=== PATIENT | female | born 1965 | race Caucasian/White ===

== ENCOUNTER → 2016-09-05 | Outpatient (CLI) | payer BC ==
[~2016-09-05] MED LIST: CYCL10TA9 PO; GBPN300C PO; LEVO500T69 PO; META800T5 PO; NAPR-243 PO; NAPR250T34 PO; ONDAN4ODT PO; OXYC-281 PO; PRD20T PO; TRM50T PO
--- NOTE | 2016-09-05 13:19 | Diagnostic Imaging Report ---
PROCEDURE: MRI lumbar spine. TECHNIQUE: Multiplanar, multisequence MRI of the lumbar spine was performed without contrast. 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 COMPARISON: 03/18/2014. FINDINGS: There is resection of vertebral body L3 and posterior elements with bone shaft implant in place of this vertebral body and anterior fusion hardware at the L4 and near the anterior margin of this bone graft. There is a posterior fusion hardware with transpedicular screws through L1, L2, L4, and L5 with bridging rods bilaterally. No obvious osseous bridging seen by MRI. The alignment of the posterior spinal line is satisfactory. The remaining vertebral bodies have normal heights. There is distortion of the marrow signal related to the hardware preventing accurate assessment. There is no obvious soft tissue mass on this unenhanced exam seen at the resection site or around it. The spinal canal appears widely patent. There is susceptibility artifact from the hardware seen. Disc desiccation at multiple levels noted. The cauda equina and conus medullaris appear grossly unremarkable. T12/L1: There is mild disc bulge and facet arthropathy without spinal canal or foraminal stenosis. L1/2: No disc herniation. There is mild facet hypertrophy. No spinal canal or foraminal stenosis. At L2/3 level, the spinal canal is widely patent. There is a small seroma posterior to the thecal sac at the L3 level. This appears similar to 03/18/2014 exam, perhaps slightly smaller. L3/4: No spinal canal stenosis and postoperative changes. L4/5: No disc herniation. There is mild facet arthropathy. The foramina demonstrate mild narrowing of the left and ckikusdw-vy-lpapdh narrowing on the right compressing the exiting right L4 spinal nerve. L5/S1: There is a diffuse disc bulge and moderate facet arthropathy. No central canal or lateral recess stenosis. There is bilateral fvppkvsd-gl-rcqhrx foraminal stenosis. IMPRESSION: Postoperative changes as described. There is dciiacva-jh-mezxqy foraminal stenosis bilaterally at L5/S1 and on the right side at L4/5 level. Dictated by: Dictated on workstation # [id number]
--- NOTE | 2016-09-05 14:05 | Diagnostic Imaging Report ---
AP and frogleg lateral views of the left hip. INDICATION: Left hip pain. FINDINGS: There is deformity from old fracture in the left pelvis with internal fixation hardware that appears intact along the iliopectineal line and near the acetabulum. Hip joint demonstrates mild degenerative subchondral sclerosis and slight joint space narrowing. No acute fracture or dislocation. IMPRESSION: Mild degenerative changes. No acute process. Dictated by: Dictated on workstation # [id number]
== END ==
LOC: RAD 11:10
PROVIDERS: ATTEND Internal Medicine
DX: M25.552 Pain in left hip (principal); D48.0 Neoplasm of uncertain behavior of bone and articular cartilage
CPT/HCPCS: 72148; 73502

== ENCOUNTER → 2017-09-27 | Outpatient (CLI) | payer BC ==
[~2017-09-27] VITALS: Ht 167.6 cm; Wt 68.0 kg
[~2017-09-27] MED LIST changes: +CATHETER FLUSH 10 ML SYR IV PRN; +REGADENOSON 0.4 MG/5 ML SYR (LEXISCAN) IV ONE
[2017-09-27 07:54] VITALS: BP 116/76
[2017-09-27 08:06] VITALS: BP 109/68
== END ==
LOC: CARD 07:00
PROVIDERS: ATTEND Internal Medicine
DX: R00.2 Palpitations (principal); R07.9 Chest pain, unspecified
CPT/HCPCS: 78452; 93017

== ENCOUNTER 2017-10-10 07:47 | Day surgery (SDC) | payer BC ==
[~2017-10-10] VITALS: Ht 167.6 cm; Wt 68.0 kg
[2017-10-10] VITALS (10 sets, daily range): BP systolic 102–127; BP diastolic 47–78
[~2017-10-10 07:47] MED LIST changes: -CATHETER FLUSH 10 ML SYR IV PRN; -REGADENOSON 0.4 MG/5 ML SYR (LEXISCAN) IV ONE
[2017-10-10] MEDS ORDERED: NS IV 1000 ML 1,000 ML ONE (07:59)
[2017-10-10] MEDS ORDERED: HEParin (CATH LAB) 2,000 ML IV ONE (07:59)
[2017-10-10] MEDS ORDERED: LIDOCAINE 1% INJ 50 ML (XYLOCAINE) VIAL ONE (08:01)
[2017-10-10] MEDS ORDERED: NS IV 1000 ML 1,000 ML IV SCH ×2 (08:16→11:02)
[2017-10-10 08:33] LABS: MEAN PLATELET VOLUME 8.7 FL (7.4-10.4); RED BLOOD COUNT 4.44 10^6/uL (4.35-5.85); RED CELL DISTRIBUTION WIDTH 12.6 % (10.0-14.5); WHITE BLOOD COUNT 4.9 10^3/uL (4.3-11.0)
[2017-10-10 08:46] LABS: PROTHROMBIN TIME PATIENT 12.9 SEC (12.2-14.7)
[2017-10-10 08:50] LABS: ALANINE AMINOTRANSFERASE 14 U/L (0-55); ALBUMIN 4.4 GM/DL (3.2-4.5); ALKALINE PHOSPHATASE 61 U/L (40-136); BILIRUBIN,TOTAL 0.5 MG/DL (0.1-1.0); BUN/CREATININE RATIO 20; CALCIUM 9.5 MG/DL (8.5-10.1); CARBON DIOXIDE 23 MMOL/L (21-32); CHLORIDE 107 MMOL/L (98-107); CREATININE SERUM 0.75 MG/DL (0.60-1.30); GFR ESTIMATED > 60; GLUCOSE 92 MG/DL (70-105); SODIUM 141 MMOL/L (135-145); TOTAL PROTEIN 6.8 GM/DL (6.4-8.2)
[2017-10-10] MEDS ORDERED: OXYC10TA7 PO (09:04)
[2017-10-10] MEDS ORDERED: CYCL5TAB PO ×2 (09:04)
[2017-10-10] MEDS ORDERED: ASPI-999 PO (09:04)
[2017-10-10] MEDS ORDERED: METO-370 PO (09:04)
[2017-10-10] MEDS ORDERED: LOVA40TA2 PO (09:04)
[2017-10-10] MEDS ORDERED: GABA600T2 PO (09:04)
[2017-10-10] MEDS ORDERED: FENT1PAT8 TD (09:04)
[2017-10-10] MEDS ORDERED: CNC1KV IJ (09:06)
[2017-10-10] MEDS ORDERED: SENN-40 PO (09:07)
[2017-10-10] MEDS ORDERED: MIDAZOLAM 5 MG/5 ML (VERSED) VIAL ONE (09:39)
[2017-10-10] MEDS ORDERED: fentaNYL INJECTION 100 MCG/2 ML AMP ONE (09:40)
[2017-10-10] MEDS ORDERED: diphenhydrAMINE 50 MG/ML INJ (BENADRYL) ONE (09:40)
[2017-10-10] MEDS ORDERED: HEParin 1000 UNIT/ML (10ML VIAL) FOR BOLUS ONE (09:40)
[2017-10-10] MEDS ORDERED: VERAPAMIL 5 MG/2 ML (CALAN) VIAL IV ONE (09:40)
[2017-10-10] MEDS ORDERED: NITRO DRIP 25000 MCG/D5W 250 ML IV ONE (09:41)
--- NOTE | 2017-10-10 10:11 | Cardiac Procedure Note-CS/ASA ---
Pre-Procedure Note Pre-Op Procedure Note H&P Reviewed The H&P was reviewed, patient examined and no changes noted. Date H&P Reviewed: Oct 10, 2017 Time H&P Reviewed: 10:11 Conscious Sedation Pre-Proced Time Reviewed: 10:11 ASA Class: 3 Airway Mallampati Classification: (ute mountain appropriate class) I. II. III, IV Lungs Heart ASA score ASA 1: a normal healthy patient ASA 2: a patient with a mild systemic disease (mid diabetes, controlled hypertension, obesity ASA 3: a patient with a severe systemic disease that limits activity (angina , COPD, prior Myocardial infarction) ASA 4: a patient with an incapacitating disease that is a constant threat to life (CHF, renal failure) ASA 5: a moribund patient not expected to survive 24 hrs. (ruptured aneurysm) ASA 6: a declared brain patient whose organs are being harvested. For emergent operations, add the letter E after the classification Grade 1 Sedation Plan: Analgesia, Amnesia, Plan communicated to team members, Discussed options with patient/fam, Discussed risks with patient/fam Note The patient is an appropriate candidate to undergo the planned procedure, sedation, and anesthesia. The patient immediately re-assessed prior to indication. Mandy SIMMONS MD Oct 10, 2017 10:11 am
--- NOTE | 2017-10-10 11:02 | Coronary Angiography Report ---
Coronary Angiography Report DATE OF PROCEDURE: 10/10/17 INDICATION: recurrent chest pain with ST-T wave abnormalities, abnormal nuclear stress test. PREOPERATIVE DIAGNOSIS: recurrent chest pain with ST-T wave abnormalities, abnormal nuclear stress test. POSTOPERATIVE DIAGNOSIS: patent epicardial coronary arteries. HISTORY: this is a 52-year-old lady who presented with recurrent episodes of chest pain with EKG changes of ST-T wave abnormalities. Nuclear stress test showed evidence of anterior apical ischemia. Therefore, the patient was scheduled for coronary angiography. PROCEDURES PERFORMED: 1.Coronary angiography. 2.Left heart catheterization. 3. Aortic arch angiography. COMPLICATIONS: None. SPECIMENS: None. ESTIMATED BLOOD LOSS: 10 mL ANESTHESIA: Conscious sedation ANTICOAGULATION: IV heparin CONTRAST: 60 mL. FLUOROSCOPY: 3.25 minutes. FLOUROSCOPY DOSE: 138 mgy. PROCEDURE DETAILS: The patient is a 52 female and was brought to the grinding and polishing laborer after informed consent was taken. All the risks and complications were explained in detail; this included the risk of bleeding, vascular damage, stroke , LA and even . The patient was draped and prepped in the usual sterile fashion. Access was gained in the right radial artery with a 6 Bhutanese sheath. Coronary angiography, aortic arch angiography and left heart catheterization was performed with the Gladstone catheter. FINDINGS: 1.Left main: patent. 2.LAD: patent, transapical vessel. Mild slow flow noted. 3.Left circumflex artery: patent. Mild slow flow noted. 4.RCA: patent. 5.Left heart catheterization: aortic pressure 74/50 mmHg, LV pressure 79/1 mmHg. LVEDP 9 mmHg. Normal LV function with no wall motion abnormalities. No gradient across the aortic valve. 6. Aortic arch angiography: No evidence of aneurysm or dissection. Normal proximal segments of the great arteries including brachycephalic artery, left common carotid artery and left subclavian artery. CONCLUSIONS: Patent epicardial coronary arteries. Mild slow flow noted in the left coronary system likely secondary to microvascular dysfunction. She may benefit from vasodilators such as amlodipine. However not started at this point in time since the blood pressure was on the lower side. Kingsley Graves MD, FACP, FACC, [facility] Interventional Cardiology Mandy GRAVES MD Oct 10, 2017 11:02 am
--- NOTE | 2017-10-10 11:04 | Discharge Inst-Post CATH ---
Discharge Inst-CATH Post Cardiac Cath D/C Inst Follow Up/Plan Dr Graves in two to three weeks CARDIAC CATH DISCHARGE INSTRUCTIONS *Hold Metformin for 48 hours post heart cath. ACTIVITY * Go Home directly and rest. * Limit activity of the leg (or wrist if it was used) for 7 days including aerobics, swimming, jogging, bicycling, etc. * Restrict stair-climbing for 7 days if possible, if not, climb up with your non -cath leg, then bring together on the same step. * Avoid lifting, pushing, pulling or excessive movement of the affected extremity for 7 days. * Customary sexual activity may be resumed after 2 days-use caution not to use a position that strains or causes pain to the affected extremity. * No driving for 24 hours. * NO SMOKING. * Avoid straining for bowel movements for 7 days. * Gentle walking on level ground is allowed. * Returning to work will depend on the type of procedure and the results. Your doctor will discuss this with you. CALL YOUR DOCTOR FOR ANY OF THE FOLLOWING: *If bleeding from the puncture site occurs- Apply gentle pressure to site with clean cloth and call your doctor or EMS. * If a knot or lump forms under the skin, increases in size, or causes pain. * If bruising appears to be worsening or moving further down your leg instead of disappearing. * Temperature above 101 F. CARE OF YOUR GROIN INCISION; * Bruising or purple discoloration of the skin near the puncture site is common. * You may shower only, no bathtub bathing for 5 days. Be careful to avoid slipping as your leg may feel stiff. * If a closure device was used on your femoral artery, please see the attached guide regarding care of the device and your leg. * REMOVE the dressing from your groin the next day after your procedure in the shower. CARE OF YOUR WRIST INCISION; * Bruising or purple discoloration of the skin near the puncture site is common. * You may shower. * DO NOT submerge wrist. * Remove dressing in 24 hours. Mandy GRAVES MD Oct 10, 2017 11:04 am
--- NOTE | 2017-10-10 11:06 | Cardiology Discharge Summary ---
Diagnosis/Chief Complaint Date of Admission 10/10/2017 Date of Discharge 10/10/2017 Admission Diagnosis recurrent chest pain, abnormal EKG, abnormal nuclear stress test Final/Discharge Diagnosis patent epicardial coronary arteries Chief Complaint/HPI Chief Complaint/HPI this is a 52-year-old lady with recurrent episodes of chest pain. Baseline EKG showed ST-T wave abnormalities. Nuclear stress test showed a reversible anterior apical defect. Coronary angiography was recommended. Discharge Summary Procedures coronary angiography which showed patent epicardial coronary arteries. Mild slow flow was noted in the left coronary system which may be secondary to microvascular dysfunction. Discharge Physical Examination stable Hospital Course unremarkable Pending Labs Laboratory Tests 10/10/17 08:24: White Blood Count 4.9, Red Blood Count 4.44, Hemoglobin 13.0, Hematocrit 37, Mean Corpuscular Volume 84, Mean Corpuscular Hemoglobin 29, Mean Corpuscular Hemoglobin Concent 35, Red Cell Distribution Width 12.6, Platelet Count 288, Mean Platelet Volume 8.7, Prothrombin Time 12.9, INR Comment 1.0, Activated Partial Thromboplast Time 33, Sodium Level 141, Potassium Level 4.0, Chloride Level 107, Carbon Dioxide Level 23, Anion Gap 11, Blood Urea Nitrogen 15, Creatinine 0.75, Estimat Glomerular Filtration Rate > 60, BUN/Creatinine Ratio 20, Glucose Level 92, Calcium Level 9.5, Total Bilirubin 0.5, Aspartate Amino Transf (AST/SGOT) 18, Alanine Aminotransferase (ALT/SGPT) 14, Alkaline Phosphatase 61, Total Protein 6.8, Albumin 4.4 Discussion & Recommendations Discussion discharge instructions discussed at length with the patient. Follow up appt.: Dr. Graves in 2-3 weeks Dicharge Diet: Low Sodium Diet Activity as Tolerated: Yes Home Medications Reviewed patient Home Medication Reconciliation performed by pharmacy medication reconciliations delivery technician and/or nursing. Patients Allergies have been reviewed. Discharge Home Medications: Reviewed and agree with Discharge Medication list on patient's Discharge Instruction sheet Condition at discharge stable. Instructions to patient/family Dr Graves in two to three weeks Mandy GRAVES MD Oct 10, 2017 11:06 am
[2017-10-10] MEDS ORDERED: PATIENT MAY USE OWN MEDS, ALL PO SCH (11:15)
--- OUTSIDE RECORDS SUMMARY | 2017-10-10 11:15 | XMS REPORT | Continuity of Care Document ---
Author Author [facility] Organization [facility] Address Unknown Phone Unavailable Allergies Active Description Code Type Severity Reaction Onset Reported/Identified Relationship to Patient Clinical Status Yes IMITREX IMITREX Unknown N/A 12/11/2012 Medications There is no data. Problems Date Dx Coded Attending Type Code Diagnosis Diagnosed By 11/23/2012 LIAM WILLIAMSON MD Ot 724.2 LUMBAGO 11/23/2012 LIAM WILLIAMSON MD Ot 724.4 LUMBOSACRAL NEURITIS NOS 12/13/2012 ELLEN TRIVEDI DO Ot 041.49 OTHER AND UNSPECIFIED ESCHERICHIA COLI [ 12/13/2012 ELLEN TRIVEDI DO Ot 239.2 BONE/SKIN NEOPLASM NOS 12/13/2012 ELLEN TRIVEDI DO Ot 477.9 ALLERGIC RHINITIS NOS 12/13/2012 ELLEN TRIVEDI DO Ot 599.0 URIN TRACT INFECTION NOS 12/13/2012 ELLEN TRIVEDI DO Ot 724.4 LUMBOSACRAL NEURITIS NOS 12/13/2012 ELLEN TRIVEDI DO Ot 733.13 PATHOLOGIC FRACTURE, VERTEBRAE 12/13/2012 ELLEN TRIVEDI DO Ot V45.77 ACQRD ABSENCE OF GENITAL ORGANS 12/25/2012 ELLEN TRIVEDI DO Ot 846.0 SPRAIN LUMBOSACRAL 12/25/2012 ELLEN TRIVEDI DO Ot E000.8 OTHER EXTERNAL CAUSE STATUS 12/25/2012 ELLEN TRIVEDI DO Ot E849.0 ACCIDENT IN HOME 12/25/2012 ELLEN TRIVEDI DO Ot E927.0 OVEREXERTION FROM SUDDEN STRENUOUS MOVEM 12/25/2012 ELLEN TRIVEDI DO Ot V57.1 PHYSICAL THERAPY NEC 01/24/2013 LB CORONA DO Ot 346.90 MIGRAINE UNSPECIFIED W/O INTRACT MGRN W/ 01/24/2013 BL CORONA DO Ot 564.09 OTHER CONSTIPATION 01/24/2013 LB CORONA DO Ot 599.0 URIN TRACT INFECTION NOS 01/24/2013 LB CORONA DO Ot 729.1 MYALGIA AND MYOSITIS NOS 01/24/2013 LB CORONA DO Ot 787.01 NAUSEA WITH VOMITING 03/08/2013 ELLEN TRIVEDI DO Ot 805.4 FX LUMBAR VERTEBRA-CLOSE 03/08/2013 ELLEN TRIVEDI DO Ot E000.8 OTHER EXTERNAL CAUSE STATUS 03/08/2013 ELLEN TRIVEDI DO Ot E928.9 ACCIDENT NOS 03/08/2013 ELLEN TRIVEDI DO Ot V72.63 PRE-PROCEDURAL LABORATORY EXAMINATION 04/17/2013 ELLEN TRIVEDI DO Ot V57.89 REHABILITATION PROC NEC 04/17/2013 ELLEN TRIVEDI DO Ot V58.49 OTHER SPECIFIED AFTERCARE FOLLOWING SURG 09/03/2016 Ot 793.89 OTH (ABN) FINDINGS ON RADIOLOGICAL EXAMI 09/03/2016 Ot V76.12 OTH SCREEN MAMMO-MALIGN NEOPLASM OF WANDA 09/03/2016 Ot 793.80 UNSPEC ABNORMAL MAMMOGRAM 09/03/2016 RIDINGS, MARIA T C OUTSIDE SALES ACCOUNT MANAGER Ot 719.45 JOINT PAIN-PELVIS 09/03/2016 RIDINGS, MARIA T C OUTSIDE SALES ACCOUNT MANAGER Ot 719.46 JOINT PAIN-L/LEG 09/03/2016 RIDINGS, MARIA T C OUTSIDE SALES ACCOUNT MANAGER Ot 724.5 BACKACHE NOS 09/03/2016 ELLEN TRIVEDI DO Ot 733.13 PATHOLOGIC FRACTURE, VERTEBRAE 09/03/2016 RIDINGS, MARIA T C OUTSIDE SALES ACCOUNT MANAGER Ot 729.5 PAIN IN LIMB 09/03/2016 RIDINGS, MARIA T C OUTSIDE SALES ACCOUNT MANAGER Ot 729.81 SWELLING OF LIMB 09/03/2016 NIDIA COY MD Ot 729.5 PAIN IN LIMB 09/03/2016 NIDIA COY MD Ot 790.99 BLOOD EXAM - OTH NONSPECIFIC FINDINGS 09/03/2016 Ot 805.4 FX LUMBAR VERTEBRA-CLOSE 09/03/2016 Ot E000.8 OTHER EXTERNAL CAUSE STATUS 09/03/2016 Ot E928.9 ACCIDENT NOS 09/03/2016 Ot V72.63 PRE- PROCEDURAL LABORATORY EXAMINATION 09/03/2016 SAMUEL DUDLEY MD Ot 239.2 BONE/SKIN NEOPLASM NOS 09/03/2016 SAMUEL DUDLEY MD Ot V67.09 SURGERY FOLLOW-UP, OTHER SURGERY 09/03/2016 SAMUEL DUDLEY MD Ot V45.4 ARTHRODESIS STATUS 09/03/2016 SAMUEL DUDLEY MD Ot V45.89 POSTSURGICAL STATES NEC 09/03/2016 SAMUEL DUDLEY MD Ot V67.09 SURGERY FOLLOW-UP, OTHER SURGERY 09/05/2016 Ot 793.89 OTH (ABN) FINDINGS ON RADIOLOGICAL EXAMI 09/05/2016 Ot V76.12 OTH SCREEN MAMMO-MALIGN NEOPLASM OF WANDA 09/05/2016 Ot 793.80 UNSPEC ABNORMAL MAMMOGRAM 09/05/2016 RIDINGS, MARIA T C OUTSIDE SALES ACCOUNT MANAGER Ot 719.45 JOINT PAIN-PELVIS 09/05/2016 RIDINGS, MARIA T C OUTSIDE SALES ACCOUNT MANAGER Ot 719.46 JOINT PAIN-L/LEG 09/05/2016 RIDINGS, MARIA T C OUTSIDE SALES ACCOUNT MANAGER Ot 724.5 BACKACHE NOS 09/05/2016 ELLEN TRIVEDI DO Ot 733.13 PATHOLOGIC FRACTURE, VERTEBRAE 09/05/2016 RIDINGS, MARIA T C OUTSIDE SALES ACCOUNT MANAGER Ot 729.5 PAIN IN LIMB 09/05/2016 RIDINGS, MARIA T C OUTSIDE SALES ACCOUNT MANAGER Ot 729.81 SWELLING OF LIMB 09/05/2016 ZBIGNIEW GASPAR, NIDIA Galvan Ot 729.5 PAIN IN LIMB 09/05/2016 ZBIGNIEW GASPAR, NIDIA Galvan Ot 790.99 BLOOD EXAM - OTH NONSPECIFIC FINDINGS 09/05/2016 Ot 805.4 FX LUMBAR VERTEBRA-CLOSE 09/05/2016 Ot E000.8 OTHER EXTERNAL CAUSE STATUS 09/05/2016 Ot E928.9 ACCIDENT NOS 09/05/2016 Ot V72.63 PRE- PROCEDURAL LABORATORY EXAMINATION 09/05/2016 SAMUEL DUDLEY MD Ot 239.2 BONE/SKIN NEOPLASM NOS 09/05/2016 SAMUEL DUDLEY MD Ot V67.09 SURGERY FOLLOW-UP, OTHER SURGERY 09/05/2016 SAMUEL DUDLEY MD Ot V45.4 ARTHRODESIS STATUS 09/05/2016 SAMUEL DUDLEY MD Ot V45.89 POSTSURGICAL STATES NEC 09/05/2016 SAMUEL DUDLEY MD Ot V67.09 SURGERY FOLLOW-UP, OTHER SURGERY 09/06/2016 ELLEN TRIVEDI DO Ot D48.0 NEOPLASM OF UNCERTAIN BEHAVIOR OF BONE/A 09/06/2016 ELLEN TRIVEDI DO Ot M25.552 PAIN IN LEFT HIP 09/11/2016 ELLEN TRIVEDI DO Ot D48.0 NEOPLASM OF UNCERTAIN BEHAVIOR OF BONE/A 09/11/2016 ELLEN TRIVEDI DO Ot M25.552 PAIN IN LEFT HIP 09/20/2016 ELLEN TRIVEDI DO Ot D48.0 NEOPLASM OF UNCERTAIN BEHAVIOR OF BONE/A 09/20/2016 TRIVEDI ELLEN TAYLOR Ot M25.552 PAIN IN LEFT HIP 01/15/2017 ELLEN TRIVEDI DO Ot D48.0 NEOPLASM OF UNCERTAIN BEHAVIOR OF BONE/A 01/15/2017 FAROOQ DOELLEN Ot M25.552 PAIN IN LEFT HIP 01/15/2017 ELLEN TRIVEDI DO Ot D48.0 NEOPLASM OF UNCERTAIN BEHAVIOR OF BONE/A 01/15/2017 ELLEN TRIVEDI DO Ot M25.552 PAIN IN LEFT HIP 07/25/2017 ELLEN TRIVEDI DO Ot D48.0 NEOPLASM OF UNCERTAIN BEHAVIOR OF BONE/A 07/25/2017 ELLEN TRIVEDI DO Ot M25.552 PAIN IN LEFT HIP 07/25/2017 ELLEN TRIVEDI DO Ot D48.0 NEOPLASM OF UNCERTAIN BEHAVIOR OF BONE/A 07/25/2017 ELLEN TRIVEDI DO Ot M25.552 PAIN IN LEFT HIP 09/03/2017 ELLEN TRIVEDI DO Ot D48.0 NEOPLASM OF UNCERTAIN BEHAVIOR OF BONE/A 09/03/2017 ELLEN TRIVEDI DO Ot M25.552 PAIN IN LEFT HIP 09/03/2017 ELLEN TRIVEDI DO Ot D48.0 NEOPLASM OF UNCERTAIN BEHAVIOR OF BONE/A 09/03/2017 ELLEN TRIVEDI DO Ot M25.552 PAIN IN LEFT HIP 09/30/2017 ELLEN TRIVEDI DO Ot R00.2 PALPITATIONS 09/30/2017 ELLEN TRIVEDI DO Ot R07.9 CHEST PAIN, UNSPECIFIED Procedures Code Description Performed By Performed On 80.39 JOINT BIOPSY NEC 12/09/2012 Results Test Result Range Automated blood complete blood count (hemogram) panel - 10/10/17 08:24 Blood leukocytes automated count (number/volume) 4.9 10*3/uL 4.3-11.0 Blood erythrocytes automated count (number/volume) 4.44 10*6/uL 4.35-5.85 Venous blood hemoglobin measurement (mass/volume) 13.0 g/dL 11.5-16.0 Blood hematocrit (volume fraction) 37 % 35-52 Automated erythrocyte mean corpuscular volume 84 [foz_us] 80-99 Automated erythrocyte mean corpuscular hemoglobin (mass per erythrocyte) 29 pg 25-34 Automated erythrocyte mean corpuscular hemoglobin concentration measurement ( mass/volume) 35 g/dL 32-36 Automated erythrocyte distribution width ratio 12.6 % 10.0-14.5 Automated blood platelet count (count/volume) 288 10*3/uL 130-400 Automated blood platelet mean volume measurement 8.7 [foz_us] 7.4-10.4 PT panel in platelet poor plasma by coagulation assay - 10/10/17 08:24 Prothrombin time (PT) in platelet poor plasma by coagulation assay 12.9 s 12.2-14.7 INR in platelet poor plasma or blood by coagulation assay 1.0 0.8-1.4 Activated partial thromboplastin time (aPTT) in platelet poor plasma bycoagulation assay - 10/10/17 08:24 Activated partial thromboplastin time (aPTT) in platelet poor plasma bycoagulation assay 33 s 24-35 Comprehensive metabolic panel - 10/10/17 08:24 Serum or plasma sodium measurement (moles/volume) 141 mmol/L 135-145 Serum or plasma potassium measurement (moles/volume) 4.0 mmol/L 3.6-5.0 Serum or plasma chloride measurement (moles/volume) 107 mmol/L 98-107 Carbon dioxide 23 mmol/L 21-32 Serum or plasma anion gap determination (moles/volume) 11 mmol/L 5-14 Serum or plasma urea nitrogen measurement (mass/volume) 15 mg/dL 7-18 Serum or plasma creatinine measurement (mass/volume) 0.75 mg/dL 0.60-1.30 Serum or plasma urea nitrogen/creatinine mass ratio 20 NRG Serum or plasma creatinine measurement with calculation of estimated glomerular filtration rate > NRG Serum or plasma glucose measurement (mass/volume) 92 mg/dL 70-105 Serum or plasma calcium measurement (mass/volume) 9.5 mg/dL 8.5-10.1 Serum or plasma total bilirubin measurement (mass/volume) 0.5 mg/dL 0.1-1.0 Serum or plasma alkaline phosphatase measurement (enzymatic activity/volume) 61 U/L 40-136 Serum or plasma aspartate aminotransferase measurement (enzymatic activity/ volume) 18 U/L 5-34 Serum or plasma alanine aminotransferase measurement (enzymatic activity/volume ) 14 U/L 0-55 Serum or plasma protein measurement (mass/volume) 6.8 g/dL 6.4-8.2 Serum or plasma albumin measurement (mass/volume) 4.4 g/dL 3.2-4.5 Encounters ACCT No. Visit Date/Time Discharge Status Pt. Type Provider Facility Loc./Unit Complaint [id number] 09/27/2017 10:30:00 09/27/2017 23:59:59 CLS Preadmit ELLEN TRIVEDI DO [facility] CARD CHEST PAIN [id number] 09/27/2017 07:00:00 09/27/2017 23:59:59 CLS Outpatient ELLEN TRIVEDI DO [facility] CARD CHEST PAIN [id number] 06/04/2017 09:30:00 06/04/2017 23:59:59 CLS Preadmit ELLEN TRIVEDI DO [facility] RAD SCREENING [id number] 09/05/2016 11:10:00 09/05/2016 23:59:59 CLS Outpatient ELLEN TRIVEDI DO [facility] RAD GIANT CELL TUMOR OF SPINE FOLLOW UP L3,L HIP PAIN [id number] 03/18/2014 08:10:00 03/18/2014 23:59:59 CLS Outpatient SAMUEL DUDLEY MD [facility] RAD POST TUMOR OF LUMBAR SPINE [id number] 07/03/2013 12:49:00 07/03/2013 23:59:59 CLS Outpatient SAMUEL DUDLEY MD [facility] RAD LUMBAR SPINE TUMOR FOLLOW UP [id number] 03/12/2013 10:25:00 04/17/2013 09:23:00 DIS Outpatient ELLEN TRIVEDI DO [facility] REHAB GIANT CELL TUMOR OF SPINE [id number] 12/08/2012 12:04:00 03/08/2013 00:01:00 DIS Outpatient ELLEN TRIVEDI DO [facility] LAB PRE OP FX L3 [id number] 02/20/2013 16:32:00 02/20/2013 23:59:59 CLS Outpatient ZBIGNIEW GASPAR, NIDIA Galvan [facility] RAD RT LEG PAIN [id number] 02/16/2013 15:27:00 02/16/2013 23:59:59 CLS Outpatient RIDINGSMARIA T OUTSIDE SALES ACCOUNT MANAGER [facility] CARD PAIN,SWELLING IN RT LEG,POST OP [id number] 01/24/2013 12:15:00 01/24/2013 16:40:00 DIS Emergency LB CORONA DO [facility] ER NAUSEA, SWELLING AT INCISION SITE [id number] 11/25/2012 16:06:00 12/25/2012 10:17:00 DIS Outpatient ELLEN TRIVEDI DO [facility] REHAB LUMBOSACRAL STRAIN [id number] 12/09/2012 16:49:00 12/13/2012 09:25:00 DIS Inpatient ELLEN TRIVEDI DO [facility] 4TH PATHOLOGIC FX L-3 [id number] 12/05/2012 09:12:00 12/05/2012 23:59:59 CLS Outpatient FAROOQ TAYLOR ELLEN Randell [facility] RAD COMPRESSION FX L-3, PATHOLOGIC [id number] 12/04/2012 10:28:00 12/04/2012 23:59:59 CLS Outpatient RIDINGSMARIA T OUTSIDE SALES ACCOUNT MANAGER [facility] RAD BACK,RT HIP,AND KNEE PAIN [id number] 11/22/2012 23:17:00 11/23/2012 02:27:00 DIS Emergency TERI GASPAR, LIAM Mcdonald [facility] ER BACK PAIN [id number] 10/10/2017 08:42:00 Document Registration [id number] 03/09/2013 00:00:00 Document Registration [id number] 05/28/2012 13:52:00 Document Registration [id number] 05/13/2012 15:09:00 Document Registration
== END 2017-10-10 16:00 | disposition home or self-care (01) ==
LOC: CATH 07:47 → SURG 11:22 → CATH 16:00
PROVIDERS: ATTEND Internal Medicine Interventional Cardiology
DX: R07.9 Chest pain, unspecified (principal); I49.3 Ventricular premature depolarization; E78.5 Hyperlipidemia, unspecified; R94.31 Abnormal electrocardiogram [ECG] [EKG]; Z79.82 Long term (current) use of aspirin; Z79.899 Other long term (current) drug therapy; Z87.891 Personal history of nicotine dependence
CPT/HCPCS: 36221; 36415; 80053; 85027; 85610; 85730; 87081; 93458

== ENCOUNTER → 2017-11-06 | Outpatient (CLI) | payer BC ==
[~2017-11-06] MED LIST changes: +ASPI-999 PO; +CNC1KV IJ; +CYCL5TAB PO; +FENT1PAT8 TD; +GABA600T2 PO; +LOVA40TA2 PO; +METO-370 PO; +OXYC10TA7 PO; +SENN-40 PO
== END ==
LOC: CARD 09:50
PROVIDERS: ATTEND Internal Medicine Interventional Cardiology
DX: R00.2 Palpitations (principal); I49.3 Ventricular premature depolarization
CPT/HCPCS: 93225; 93226

== ENCOUNTER 2018-10-30 23:01 | Emergency (ER) | payer BC ==
[~2018-10-30] VITALS: Ht 167.6 cm; Wt 68.0 kg
[~2018-10-30 23:01] MED LIST changes: -GABA600T2 PO; +GBPN600T PO
--- OUTSIDE RECORDS SUMMARY | 2018-10-30 23:10 | XMS REPORT | Continuity of Care Document ---
Author Organization Unknown Address Unknown Allergies Active Description Code Type Severity Reaction Onset Reported/Identified Relationship to Patient Clinical Status Yes IMITREX IMITREX Unknown N/A 12/11/2012 Medications There is no data. Problems Date Dx Coded Attending Type Code Diagnosis Diagnosed By 11/23/2012 TERI GASPAR, LIAM Mcdonald Ot 724.2 LUMBAGO 11/23/2012 TERI GASPAR, LIAM Mcdonald Ot 724.4 LUMBOSACRAL NEURITIS NOS 12/13/2012 ELLEN [...] MIGRAINE UNSPECIFIED W/O INTRACT MGRN W/ 01/24/2013 LB CORONA DO Ot 564.09 OTHER CONSTIPATION 01/24/2013 LB CORONA DO Ot 599.0 URIN TRACT INFECTION NOS 01/24/2013 LB CORONA DO Ot 729.1 MYALGIA AND MYOSITIS NOS 01/24/2013 CHLOE TAYLOR LB Marinelli Ot 787.01 NAUSEA WITH VOMITING 03/08/2013 ELLEN [...] ABNORMAL MAMMOGRAM 09/03/2016 RIDINGS, MARIA T C DIRECTOR HR COMMUNICATIONS Ot 719.45 JOINT PAIN-PELVIS 09/03/2016 RIDINGS, MARIA T C DIRECTOR HR COMMUNICATIONS Ot 719.46 JOINT PAIN-L/LEG 09/03/2016 RIDINGS, MARIA T C DIRECTOR HR COMMUNICATIONS Ot 724.5 BACKACHE NOS 09/03/2016 ELLEN TRIVEDI DO Ot 733.13 PATHOLOGIC FRACTURE, VERTEBRAE 09/03/2016 RIDINGS, MARIA T C DIRECTOR HR COMMUNICATIONS Ot 729.5 PAIN IN LIMB 09/03/2016 RIDINGS, MARIA T C DIRECTOR HR COMMUNICATIONS Ot 729.81 SWELLING OF LIMB 09/03/2016 ZBIGNIEW GASPAR, NIDIA Galvan Ot 729.5 PAIN IN LIMB 09/03/2016 ZBIGNIEW GASPAR, NIDIA Galvan Ot 790.99 BLOOD [...] ABNORMAL MAMMOGRAM 09/05/2016 RIDINGS, MARIA T C DIRECTOR HR COMMUNICATIONS Ot 719.45 JOINT PAIN-PELVIS 09/05/2016 RIDINGS, MARIA T C DIRECTOR HR COMMUNICATIONS Ot 719.46 JOINT PAIN-L/LEG 09/05/2016 RIDINGS, MARIA T C DIRECTOR HR COMMUNICATIONS Ot 724.5 BACKACHE NOS 09/05/2016 ELLEN TRIVEDI DO Ot 733.13 PATHOLOGIC FRACTURE, VERTEBRAE 09/05/2016 RIDINGS, MARIA T C DIRECTOR HR COMMUNICATIONS Ot 729.5 PAIN IN LIMB 09/05/2016 RIDINGS, MARIA T C DIRECTOR HR COMMUNICATIONS Ot 729.81 SWELLING OF LIMB 09/05/2016 ZBIGNIEW GASPAR, NIDIA Galvan Ot 729.5 PAIN IN LIMB 09/05/2016 NIDIA COY MD Ot 790.99 BLOOD EXAM [...] Ot V67.09 SURGERY FOLLOW-UP, OTHER SURGERY 09/06/2016 FAROOQ TAYLOR, ELLEN Mejias Ot D48.0 NEOPLASM OF UNCERTAIN BEHAVIOR OF BONE/A 09/06/2016 TRIVEDI DO, ELLEN Mejias Ot M25.552 PAIN IN LEFT HIP 09/11/2016 TRIVEDI DO, ELLEN Mejias Ot D48.0 NEOPLASM OF UNCERTAIN BEHAVIOR OF BONE/A 09/11/2016 TRIVEDI DO, ELLEN Mejias Ot M25.552 PAIN IN LEFT HIP 09/20/2016 TRIVEDI DO, ELLEN Mejias Ot D48.0 NEOPLASM OF UNCERTAIN BEHAVIOR OF BONE/A 09/20/2016 TRIVEDI DO, ELLEN Mejias Ot M25.552 PAIN IN LEFT HIP 01/15/2017 TRIVEDI DO, ELLEN Mejias Ot D48.0 NEOPLASM OF UNCERTAIN BEHAVIOR OF BONE/A 01/15/2017 TRIVEDI DO, ELLEN Mejias Ot M25.552 PAIN IN LEFT HIP 01/15/2017 TRIVEDI DO, ELLEN Mejias Ot D48.0 NEOPLASM OF UNCERTAIN BEHAVIOR OF BONE/A 01/15/2017 TRIVEDI DO, ELLEN Mejias Ot M25.552 PAIN IN LEFT HIP 07/25/2017 TRIVEDI DO, ELLEN Mejias Ot D48.0 NEOPLASM OF UNCERTAIN BEHAVIOR OF BONE/A 07/25/2017 TRIVEDI DO, ELLEN Mejias Ot M25.552 PAIN IN LEFT HIP 07/25/2017 TRIVEDI DO, ELLEN Mejias Ot D48.0 NEOPLASM OF UNCERTAIN BEHAVIOR OF BONE/A 07/25/2017 TRIVEDI DO, ELLEN Mejias Ot M25.552 PAIN IN LEFT HIP 09/03/2017 TRIVEDI DO, ELLEN Mejias Ot D48.0 NEOPLASM OF UNCERTAIN BEHAVIOR OF BONE/A 09/03/2017 TRIVEDI DO, ELLEN Mejias Ot M25.552 PAIN IN LEFT HIP 09/03/2017 TRIVEDI DO, ELLEN Mejias Ot D48.0 NEOPLASM OF UNCERTAIN BEHAVIOR OF BONE/A 09/03/2017 TRIVEDI DO, ELLEN Mejias Ot M25.552 PAIN IN LEFT HIP 09/30/2017 ELLEN TRIVEDI DO Ot R00.2 PALPITATIONS 09/30/2017 ELLEN TRIVEDI DO Ot R07.9 CHEST PAIN, UNSPECIFIED 10/10/2017 Mandy SIMMONS MD Ot E78.5 HYPERLIPIDEMIA, UNSPECIFIED 10/10/2017 Mandy SIMMONS MD Ot I49.3 VENTRICULAR PREMATURE DEPOLARIZATION 10/10/2017 Mandy SIMMONS MD Ot R07.9 CHEST PAIN, UNSPECIFIED 10/10/2017 Mandy SIMMONS MD Ot R94.31 ABNORMAL ELECTROCARDIOGRAM [ECG] [EKG] 10/10/2017 Mandy SIMMONS MD Ot Z79.82 SHELTER (CURRENT) USE OF ASPIRIN 10/10/2017 Mandy SIMMONS MD, Ot Z79.899 OTHER BMET (CURRENT) DRUG THERAPY 10/10/2017 Mandy SIMMONS MD, Ot Z87.891 PERSONAL HISTORY OF NICOTINE DEPENDENCE 11/07/2017 Mandy SIMMONS MD, Ot I49.3 VENTRICULAR PREMATURE DEPOLARIZATION 11/07/2017 Mandy SIMMONS MD Ot R00.2 PALPITATIONS 11/13/2017 ELLEN TRIVEDI DO Ot R00.2 PALPITATIONS 11/13/2017 ELLEN TRIVEDI DO Ot R07.9 CHEST PAIN, UNSPECIFIED 11/20/2017 Mandy SIMMONS MD Ot I49.3 VENTRICULAR PREMATURE DEPOLARIZATION 11/20/2017 Mandy SIMMONS MD, Ot R00.2 PALPITATIONS 12/23/2017 ELLEN TRIVEDI DO Ot D48.0 NEOPLASM OF UNCERTAIN BEHAVIOR OF BONE/A 12/23/2017 ELLEN TRIVEDI DO Ot M25.552 PAIN IN LEFT HIP 12/23/2017 RIDINGS, MARIA T C DIRECTOR HR COMMUNICATIONS Ot 719.45 JOINT PAIN-PELVIS 12/23/2017 RIDINGS, MARIA T C DIRECTOR HR COMMUNICATIONS Ot 719.46 JOINT PAIN-L/LEG 12/23/2017 RIDINGS, MARIA T C DIRECTOR HR COMMUNICATIONS Ot 724.5 BACKACHE NOS 12/23/2017 ELLEN TRIVEDI DO Ot 733.13 PATHOLOGIC FRACTURE, VERTEBRAE 12/23/2017 RIDINGS, MARIA T C DIRECTOR HR COMMUNICATIONS Ot 729.5 PAIN IN LIMB 12/23/2017 RIDINGS, MARIA T C DIRECTOR HR COMMUNICATIONS Ot 729.81 SWELLING OF LIMB 12/23/2017 NIDIA COY MD Ot 729.5 PAIN IN LIMB 12/23/2017 NIDIA COY MD Ot 790.99 BLOOD EXAM - OTH NONSPECIFIC FINDINGS 12/23/2017 Ot 805.4 FX LUMBAR VERTEBRA-CLOSE 12/23/2017 Ot E000.8 OTHER EXTERNAL CAUSE STATUS 12/23/2017 Ot E928.9 ACCIDENT NOS 12/23/2017 Ot V72.63 PRE- PROCEDURAL LABORATORY EXAMINATION 12/23/2017 SAMUEL DUDLEY MD Ot 239.2 BONE/SKIN NEOPLASM NOS 12/23/2017 SAMUEL DUDLEY MD Ot V67.09 SURGERY FOLLOW-UP, OTHER SURGERY 12/23/2017 SAMUEL DUDLEY MD Ot V45.4 ARTHRODESIS STATUS 12/23/2017 SAMUEL DUDLEY MD Ot V45.89 POSTSURGICAL STATES NEC 12/23/2017 SAMUEL DUDLEY MD Ot V67.09 SURGERY FOLLOW-UP, OTHER SURGERY 12/23/2017 ELLEN TRIVEDI DO Ot D48.0 NEOPLASM OF UNCERTAIN BEHAVIOR OF BONE/A 12/23/2017 ELLEN TRIVEDI DO Ot M25.552 PAIN IN LEFT HIP 02/01/2018 RIDINGS, MARIA T C DIRECTOR HR COMMUNICATIONS Ot 719.45 JOINT PAIN-PELVIS 02/01/2018 RIDINGS, MARIA T C DIRECTOR HR COMMUNICATIONS Ot 719.46 JOINT PAIN-L/LEG 02/01/2018 RIDINGS, MARIA T C DIRECTOR HR COMMUNICATIONS Ot 724.5 BACKACHE NOS 02/01/2018 ELLEN TRIVEDI DO Ot 733.13 PATHOLOGIC FRACTURE, VERTEBRAE 02/01/2018 RIDINGS, MARIA T C DIRECTOR HR COMMUNICATIONS Ot 729.5 PAIN IN LIMB 02/01/2018 RIDINGS, MARIA T C DIRECTOR HR COMMUNICATIONS Ot 729.81 SWELLING OF LIMB 02/01/2018 NIDIA COY MD Ot 729.5 PAIN IN LIMB 02/01/2018 NIDIA COY MD Ot 790.99 BLOOD EXAM - OTH NONSPECIFIC FINDINGS 02/01/2018 Ot 805.4 FX LUMBAR VERTEBRA-CLOSE 02/01/2018 Ot E000.8 OTHER EXTERNAL CAUSE STATUS 02/01/2018 Ot E928.9 ACCIDENT NOS 02/01/2018 Ot V72.63 PRE- PROCEDURAL LABORATORY EXAMINATION 02/01/2018 SAMUEL DUDLEY MD Ot 239.2 BONE/SKIN NEOPLASM NOS 02/01/2018 SAMUEL DUDLEY MD Ot V67.09 SURGERY FOLLOW-UP, OTHER SURGERY 02/01/2018 SAMUEL DUDLEY MD, Ot V45.4 ARTHRODESIS STATUS 02/01/2018 SAMUEL DUDLEY MD, Ot V45.89 POSTSURGICAL STATES NEC 02/01/2018 SAMUEL DUDLEY MD, Ot V67.09 SURGERY FOLLOW-UP, OTHER SURGERY 02/01/2018 ELLEN TRIVEDI DO, Ot D48.0 NEOPLASM OF UNCERTAIN BEHAVIOR OF BONE/A 02/01/2018 ELLEN TRIVEDI DO, Ot M25.552 PAIN IN LEFT HIP Procedures Code Description Performed By Performed On 80.39 JOINT BIOPSY [facility] 12/09/2012 Results Test Result Range Automated blood [...] plasma albumin measurement (mass/volume) 4.4 g/dL 3.2-4.5 Methicillin resistant Staphylococcus aureus (MRSA) screening culture - 08:24 Methicillin resistant Staphylococcus aureus (MRSA) screening culture NEG NRG Encounters ACCT No. Visit Date/Time Discharge Status Pt. Type Provider Facility Loc./Unit Complaint [id number] 11/06/2017 09:50:00 11/06/2017 23:59:59 CLS Outpatient Mandy SIMMONS MD [facility] CARD R00.2 PALPITATIONS [id number] 10/10/2017 07:47:00 10/10/2017 16:00:00 DIS Outpatient Mandy SIMMONS MD [facility] CATH CP,ABN STRESS TEST [id number] 09/27/2017 10:30:00 09/27/2017 23:59:59 CLS Preadmit ELLEN TRIVEDI DO [facility] CARD CHEST PAIN [id number] 09/27/2017 07:00:00 09/27/2017 23:59:59 CLS Outpatient ELLEN TRIVEDI DO [facility] CARD CHEST PAIN [id number] 06/04/2017 09:30:00 06/04/2017 23:59:59 CLS Preadmit ELLEN TRIVEDI DO [facility] RAD SCREENING [id number] 09/05/2016 11:10:00 09/05/2016 23:59:59 CLS Outpatient ELLEN TRIVEDI DO [facility] RAD GIANT CELL TUMOR OF SPINE FOLLOW UP L3,L HIP PAIN [id number] 03/18/2014 08:10:00 03/18/2014 23:59:59 CLS Outpatient SAMUEL DUDLEY MD [facility] RAD POST TUMOR OF LUMBAR SPINE [id number] 07/03/2013 12:49:00 07/03/2013 23:59:59 CLS Outpatient SAMUEL DUDLEY MD [facility] RAD LUMBAR SPINE TUMOR FOLLOW UP [id number] 03/12/2013 10:25:00 04/17/2013 09:23:00 DIS Outpatient ELLEN TRIVEDI DO [facility] REHAB GIANT CELL TUMOR OF SPINE [id number] 12/08/2012 12:04:00 03/08/2013 00:01:00 DIS Outpatient ELLEN TRIVEDI DO [facility] LAB PRE OP FX L3 [id number] 02/20/2013 16:32:00 02/20/2013 23:59:59 CLS Outpatient NIDIA COY MD [facility] RAD RT LEG PAIN [id number] 02/16/2013 15:27:00 02/16/2013 23:59:59 CLS Outpatient RIDINGSMARIA T APRN [facility] CARD PAIN,SWELLING IN RT LEG,POST OP [id number] 01/24/2013 12:15:00 01/24/2013 16:40:00 DIS Emergency LB CORONA DO [facility] ER NAUSEA, SWELLING AT INCISION SITE [id number] 11/25/2012 16:06:00 12/25/2012 10:17:00 DIS Outpatient ELLEN TRIVEDI DO [place] [facility] REHAB LUMBOSACRAL STRAIN [id number] 12/09/2012 16:49:00 12/13/2012 09:25:00 DIS Inpatient ELLEN TRIVEDI DO [facility] 4TH PATHOLOGIC FX L-3 [id number] 12/05/2012 09:12:00 12/05/2012 23:59:59 CLS Outpatient ELLEN TRIVEDI DO [facility] RAD COMPRESSION FX L-3, PATHOLOGIC [id number] 12/04/2012 10:28:00 12/04/2012 23:59:59 CLS Outpatient RIDINGS, MARIA T C DIRECTOR HR COMMUNICATIONS [facility] RAD BACK,RT HIP,AND KNEE PAIN [id number] 11/22/2012 23:17:00 11/23/2012 02:27:00 DIS Emergency TERI GASPAR, LIAM Mcdonald [facility] ER BACK PAIN [id number] 10/30/2018 23:05:00 ACT Emergency LB CORONA DO [facility] ER UNCONTROLLED PAIN,NUMBNESS RT LEG [id number] 03/09/2013 00:00:00 Document Registration [id number] 05/28/2012 13:52:00 Document Registration [id number] 05/13/2012 15:09:00 Document Registration
[2018-10-31] MEDS ORDERED: methylPREDNISolone 125 MG (Solu-MEDROL) VIAL IM ONE (00:30)
[2018-10-31] MEDS ORDERED: DIAZEPAM 5 MG (VALIUM) TABLET PO ONE (00:30)
[2018-10-31] MEDS ORDERED: PRED5TAB PO (00:33)
[2018-10-31] MEDS ORDERED: DIAZ5TAB PO (00:33)
--- NOTE | 2018-10-31 00:34 | ED Back Pain ---
General Chief Complaint: Back Problems Stated Complaint: UNCONTROLLED PAIN,NUMBNESS RT LEG Nursing Triage Note: WORSENED CHRONIC BACK PAIN. Nursing Sepsis Screen: No Definite Risk Source of Information: Patient History of Present Illness Date Seen by Provider: Oct 31, 2018 Time Seen by Provider: 00:05 Initial Comments PT ARRIVES VIA POV FROM HOME C/O LOWER BACK PAIN, RADIATING DOWN RIGHT LEG THIS IS A CHRONIC PROBLEM FOR MANY YEARS AND HAS HAD 2 BACK SURGERIES--DONE AT [facility] [address] STATES PAIN IS ALWAYS THERE, AND STATES SHE HAS NERVE DAMAGE WHICH CAUSES CHRONIC RIGHT LEG PAIN AND BURNING PT STATES PAIN HAS BEEN WORSE SINCE SHE GOT HOME FROM WORK AT 1800 TONIGHT. NO INJURY, OR UNUSUAL ACTIVITY, NO LIFTING, ETC. 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 PT TAKES OXYCODONE 10 MG TID AND HAS A FENTANYL PATCH 25 MCG--SAME DOSE FOR A LONG TIME STATES SHE PUT ON A NEW PATCH TONIGHT, TOOK AN EXTRA OXYCODONE, TOOK 2 FLEXERIL AND 600 MG GABAPENTIN TONIGHT AT 2200 WITHOUT RELIEF. NO MISSED DOSES OF MEDICATIONS ALWAYS HAS PAIN AND NUMBNESS TO RIGHT LEG NO NEW SYMPTOMS NO PROBLEMS WITH BLADDER OR BOWEL FUNCTION PT SEES DR. TRIVEDI FOR ALL CARE. PT DOES NOT SEE ANY SPECIALIST FOR HER BACK, AND DOES NOT SEE ANYONE IN PAIN MANAGEMENT Allergies and Home Medications Allergies Uncoded Allergies: IMITREX (Allergy, Unknown, 12/11/12) Home Medications Aspirin 81 Mg Tab.chew, 81 MG PO HS, (Reported) Cyanocobalamin 1,000 Mcg/Ml Inj, 1,000 MCG IJ MONTHLY, (Reported) Cyclobenzaprine HCl 5 Mg Tablet, 10 MG PO HS, (Reported) TAKES 2 (5MG) TABLETS Cyclobenzaprine HCl 5 Mg Tablet, 5 MG PO DAILY PRN for MUSCLE SPASMS, (Reported) TAKES DURING THE DAY PRN OR MAY TAKE WITH HER 2 BEDTIME TABLETS FOR TOTAL OF 15MG AT BEDTIME Diazepam 5 Mg Tablet, 5 MG PO Q6H Prescribed by: LB CORONA on 10/31/18 0033 Fentanyl 1 Each Patch.td72, 25 MCG TD Q72H, (Reported) Gabapentin 600 Mg Tablet, 600 MG PO TID, (Reported) Lovastatin 40 Mg Tablet, 40 MG PO HS, (Reported) Metoprolol Succinate 50 Mg Tab.er.24h, 50 MG PO DAILY, (Reported) Oxycodone HCl 10 Mg Tablet, 10 MG PO BID, (Reported) Prednisone 5 Mg Tablet, 5 MG PO UD 12 PILLS DAY 1, THEN DECREASE BY 1 PILL A DAY UNTIL GONE Prescribed by: LB CORONA on 10/31/18 0033 Sennosides/Docusate Sodium 1 Each Tablet, 2 TAB PO DAILY PRN for CONSTIPATION- 6TH LINE, (Reported) Patient Home Medication List Home Medication List Reviewed: Yes Review of Systems Constitutional: no symptoms reported Respiratory: no symptoms reported Cardiovascular: no symptoms reported Gastrointestinal: no symptoms reported Genitourinary: no symptoms reported Musculoskeletal: see HPI Skin: no symptoms reported Psychiatric/Neurological: See HPI Past Xjotvzm-Vrkktr-Ifimfz Hx Patient Social History Alcohol Use: Denies Use Recreational Drug Use: No Smoking Status: Never a Smoker 2nd Hand Smoke Exposure: No Recent Foreign Travel: No Contact w/Someone Who Travel: No Recent Infectious Disease Expo: No Recent Hopitalizations: No Immunizations Up To Date Tetanus Booster (TDap): Unknown Seasonal Allergies Seasonal Allergies: No Past Medical History Surgeries: Yes (HIP RECONSTRUCTION; CARDIAC CATH; BACK SURGERY X 2) Hysterectomy, Orthopedic Respiratory: No Cardiac: Yes High Cholesterol, Hypertension Neurological: Yes (Lumbar pain with RLE radiculopathy.GIANT CELL TUMOR OF SPINE --NEW DX) Neuropathy : No BRIGADIER History: Hysterectomy Genitourinary: Yes Bladder Infection Gastrointestinal: Yes Chronic Constipation Musculoskeletal: Yes (Lumbar radiculopathy WITH CHRONIC RIGHT LEG PAIN, NUMBNESS AND BURNING, history of hip fracture with reconstruction/hardware; BACK SURGERY X 2) Degenerate Disk Disease, Fibromyalgia, Chronic Back Pain Endocrine: No HEENT: No 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 0.0oz. 68.547246ev; 24.2 BMI Method:Stated General Appearance: No Apparent Distress, WD/WN, Other (SOBBING, BUT SITTING CROSS LEGGED, WALKS UPRIGHT AND CHANGES POSITIONS AND MOVES VERY QUICKLY WITHOUT ANY DIFFICULTY WHATSOEVER.GOES FROM SITTING WITH HER LEGS CROSSED ON THE BED, TO SWINGING LEGS OUT AND SWIVELING AROUND TO SITTING ON SIDE OF BED WITH LEGS HANGING OFF SIDE OF BED --DOES THIS VERY QUICKLY WITHOUT ANY EVIDENCE OF DISCOMFORT. ) Cardiovascular: Regular Rate, Rhythm, Normal Peripheral Pulses Respiratory: Normal Breath Sounds Gastrointestinal: Non Tender, Soft Back: Normal Inspection, No CVA Tenderness, No Vertebral Tenderness; No Decreased Range of Motion; Other (DTR'S INTACT. NEGATIVE STRAIGHT LEG RAISING BILATERALLY. 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 TRIVEDI FOR FURTHER CARE PT STATES SHE HAS TO SEE HIM TOMORROW FOR REFILLS ON HER PAIN MEDICATIONS. EXPLAINED THAT THERE IS NO URGENT NEED FOR CT OR MRI SHE HAS NOT HAD AN INJURY, AND SYMPTOMS ARE NOT NEW OR DIFFERENT THAN WHAT SHE HAS EXPERIENCED IN THE PAST. Departure Impression Primary Impression: Acute exacerbation of chronic low back pain Additional Impression: EXACERBATION OF CHRONIC RIGHT SCIATICA/RADICULOPATHY Disposition: 01 HOME, SELF-CARE Condition: Stable Departure-Patient Inst. Referrals: ELLEN TRIVEDI DO (PCP/Family) Primary Care Physician Patient Instructions: MANAGING YOUR CHRONIC PAIN, Radiculopathy (DC), Low Back Pain (DC) Add. Discharge Instructions: ALTERNATE ICE AND HEAT TO AREA AT 20 MINUTE INTERVALS NO LIFTING OVER 10 LBS, NO TWISTING OR BENDING AT WAIST HOLD FLEXERIL WHILE YOU ARE TAKING VALIUM CONTINUE YOUR OTHER MEDICATIONS PRESCRIBED FOLLOW UP WITH DR TRIVEDI TOMORROW FOR FURTHER CARE All discharge instructions reviewed with patient and/or family. Voiced understanding. Scripts Diazepam (Valium) 5 Mg Tablet 5 MG PO Q6H, #20 TAB Prov: LB CORONA DO 10/31/18 Prednisone (Prednisone) 5 Mg Tablet 5 MG PO UD, #78 TAB 12 PILLS DAY 1, THEN DECREASE BY 1 PILL A DAY UNTIL GONE Prov: LB CORONA DO 10/31/18 LB CORONA DO Oct 31, 2018 00:34
[2018-10-31 00:43] VITALS: BP 127/54
== END 2018-10-31 00:44 | disposition home or self-care (01) ==
LOC: EDUNIT# 23:01 → ER 23:05
DX: M54.41 Lumbago with sciatica, right side (principal); M54.16 Radiculopathy, lumbar region; G89.18 Other acute postprocedural pain; E78.00 Pure hypercholesterolemia, unspecified; I10 Essential (primary) hypertension; M79.7 Fibromyalgia; D64.9 Anemia, unspecified; Z86.018 Personal history of other benign neoplasm; Z87.19 Personal history of other diseases of the digestive system; Z87.448 Personal history of other diseases of urinary system; Z88.8 Allergy status to other drugs, medicaments and biological substances; Z79.82 Long term (current) use of aspirin; Z79.52 Long term (current) use of systemic steroids; Z90.710 Acquired absence of both cervix and uterus; Z98.890 Other specified postprocedural states
CPT/HCPCS: 99284

== ENCOUNTER → 2019-11-23 | Outpatient (CLI) | payer OTHER ==
[~2019-11-23] MED LIST changes: +DIAZ5TAB PO; -METO-370 PO; +METO50TA7 PO; +PRED5TAB PO
--- NOTE | 2019-11-24 12:44 | Diagnostic Imaging Report ---
INDICATION: Routine screening. Correlation is made with prior mammogram from 05/13/2012 and 03/19/2008. 2-D and 3-D bilateral screening mammography was performed with CAD. Both breasts are heterogeneously dense, limiting the sensitivity of mammography. There is a density in the medial aspect of the right breast at mid to posterior depth which appears more prominent on today's study. Additional views are recommended. Left breast is unremarkable. No malignant appearing microcalcifications are seen. Axillae are unremarkable. IMPRESSION: BI-RADS 0 Right breast density. Additional views including spot compression and rolled CC views is recommended for further evaluation. ACR BI-RADS Category 0: Incomplete. (Needs additional imaging evaluation). Result letter will be mailed to the patient. Note: At least 10% of breast cancer is not imaged by mammography. Dictated by: Dictated on workstation # [id number]
== END ==
LOC: RAD 15:39
PROVIDERS: ATTEND Internal Medicine
DX: Z12.31 Encounter for screening mammogram for malignant neoplasm of breast (principal); R92.8 Other abnormal and inconclusive findings on diagnostic imaging of breast
CPT/HCPCS: 77063; 77067

== ENCOUNTER → 2019-12-04 | Outpatient (CLI) | payer OTHER ==
--- NOTE | 2019-12-04 15:33 | Diagnostic Imaging Report ---
INDICATION: Right breast density. Patient presented for additional views. CORRELATION is made with prior mammograms from 11/23/2019 and 05/13/2012. Unilateral right 2-D and 3-D diagnostic mammography was performed. Additional views included spot compression CC, rolled CC and conventional 90 degree lateral views. Additional views show mild residual density in the medial right breast at mid depth. This is indeterminate. No corresponding density on the lateral view is seen. IMPRESSION: BI-RADS 0 Density medial right breast approximately 5 cm from the nipple. Further evaluation with ultrasound is recommended and will be performed today. ACR BI-RADS Category 0: Incomplete. (Needs additional imaging evaluation). Result letter will be mailed to the patient. Note: At least 10% of breast cancer is not imaged by mammography. Dictated by: Dictated on workstation # [id number]
--- NOTE | 2019-12-04 15:39 | Diagnostic Imaging Report ---
INDICATION: Right breast density. CORRELATION is made with diagnostic study earlier same day as well as screening study from 11/23/2019. Sonographic interrogation of the medial right breast was performed. There is a cyst at the 5:30 location of the right breast, 4 cm from the nipple. There may be minimal internal debris. No internal vascularity is seen. No other abnormalities are detected. IMPRESSION: BI-RADS Category 2 Slightly complex cyst at the 5:30 location of the right breast, 4 cm from the nipple. This likely accounts for the mammographic density. The patient may return to routine annual screening mammography. ACR BI-RADS Category 2: Benign findings. Result letter will be mailed to the patient. Note: At least 10% of breast cancer is not imaged by mammography. Dictated by: Dictated on workstation # [id number]
== END ==
LOC: RAD 14:13
PROVIDERS: ATTEND Internal Medicine
DX: N60.01 Solitary cyst of right breast (principal); R92.8 Other abnormal and inconclusive findings on diagnostic imaging of breast

== ENCOUNTER → 2021-04-14 | Outpatient (CLI) | payer OTHER | LOC: CARD 15:01 | PROVIDERS: ATTEND Internal Medicine Cardiovascular Disease | DX: I10 Essential (primary) hypertension (principal) ==

== ENCOUNTER 2021-09-09 21:55 | Observation (INO) | payer OTHER ==
[~2021-09-09] VITALS: Ht 167.7 cm; Wt 69.8 kg
--- NOTE | 2021-09-09 22:29 | ED Chest Pain ---
General Chief Complaint: Chest Pain Stated Complaint: IRREGULAR HEART BEAT, CHEST PAIN Nursing Triage Note: TO ED VIA POV AND AMBULATORY TO ROOM 6 WITH C/O CP THAT STARTED APPROX 1500 TODAY AND RADIATES DOWN LEFT ARM. APPLE WATCH WOKE UP PT STATING, "LOW HEART RATE". TOOK 2 BABY ASA AND 50 MG METOPROLOL AT 1700. NORMALLY TAKES 180 CARDIZEM AT HS, BUT HAS NOT TAKEN TONIGHT. Source: patient Exam Limitations: no limitations History of Present Illness Date Seen by Provider: Sep 09, 2021 Time Seen by Provider: 22:27 Initial Comments Patient is a 56-year-old female history of irregular heart rate, dyslipidemia who presents ED with chest pain and low heart rate. She states around 3:00 her alarm on her watch went off stating her heart rate was in the 30s. Started having chest pressure and discomfort around 4 that lasted around an hour. Radiation of pain into her left arm. Mild shortness of breath without cough, nausea, vomiting, diarrhea. Patient has been on metoprolol 50mg BID secondary to bigeminy and trigeminy from her primary care physician. Recently added Card izem 180 mg 6 weeks ago for irregular heart rhythm by Dr. Bonilla. Patient states she had a syncopal episode a month ago that she did not follow-up regarding this. No known history of coronary artery disease, COPD, asthma. Denies any recent travels or surgeries. Patient's concern for the low heart rate and chest pain. Denies history of thyroid disease, diabetes, high cholesterol, smoking, headache. 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 Allergies and Home Medications Allergies Uncoded Allergies: IMITREX (Allergy, Unknown, 12/11/12) Patient Home Medication List Home Medication List Reviewed: Yes Aspirin (Aspirin) 81 Mg Tab.chew, 81 MG PO HS, (Reported) Entered as Reported by: CHHAYA TUCKER on 10/10/17903 Cyanocobalamin (Cyanocobalamin Injection) 1,000 Mcg/Ml Inj, 1,000 MCG IJ MONTHLY, (Reported) Entered as Reported by: CHHAYA TUCKER on 10/10/17905 Cyclobenzaprine HCl (Cyclobenzaprine HCl) 5 Mg Tablet, 10 MG PO HS, (Reported) Entered as Reported by: CHHAYA TUCKER on 10/10/17903 Cyclobenzaprine HCl (Cyclobenzaprine HCl) 5 Mg Tablet, 5 MG PO DAILY PRN for MUSCLE SPASMS, (Reported) Entered as Reported by: CHHAYA TUCKER on 10/10/17903 Diazepam (Valium) 5 Mg Tablet, 5 MG PO Q6H Prescribed by: LB CORONA on 10/31/1832 Fentanyl (Fentanyl Patch 25 MCG) 1 Each Patch.td72, 25 MCG TD Q72H, (Reported) Entered as Reported by: CHHAYA TUCKER on 10/10/17903 Gabapentin (Gabapentin) 600 Mg Tablet, 600 MG PO TID, (Reported) Entered as Reported by: CHHAYA TUCKER on 10/10/17903 Lovastatin (Lovastatin) 40 Mg Tablet, 40 MG PO HS, (Reported) Entered as Reported by: CHHAYA TUCKER on 10/10/17903 Metoprolol Succinate (Metoprolol Succinate) 50 Mg Tab.er.24h, 50 MG PO DAILY, (Reported) Entered as Reported by: CHHAYA TUCKER on 10/10/17903 Oxycodone HCl (Oxycodone HCl) 10 Mg Tablet, 10 MG PO BID, (Reported) Entered as Reported by: CHHAYA TUCKER on 10/10/17903 Prednisone (Prednisone) 5 Mg Tablet, 5 MG PO UD Prescribed by: LB CORONA on 10/31/1832 Sennosides/Docusate Sodium (Senokot-S Tablet) 1 Each Tablet, 2 TAB PO DAILY PRN for CONSTIPATION-6TH LINE, (Reported) Entered as Reported by: CHHAYA TUCKER on 10/10/17906 Review of Systems Review of Systems Constitutional: chills, diaphoresis, dizziness, fever EENTM: Eye Pain Respiratory: Denies Cough, Denies Shortness of Air, Denies SOA With Exertion, Denies SOA at Rest Cardiovascular: Chest Pain; Denies Edema; Irregular Heart Rate Gastrointestinal: Denies Abdominal Pain, Denies Constipated Genitourinary: Denies Burning, Denies Discharge Musculoskeletal: No back pain, No joint pain All Other Systems Reviewed Negative Unless Noted: Yes Past Licsmyg-Alzudw-Nenzzm Hx Patient Social History Tobacco Use?: No Substance use?: No Alcohol Use?: No Immunizations Up To Date Tetanus Booster (TDap): Unknown COVID19 Vaccine 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 Seasonal Allergies Seasonal Allergies: No Past Medical History Surgeries: Yes (HIP RECONSTRUCTION; CARDIAC CATH; BACK SURGERY X 2) Hysterectomy, Orthopedic Respiratory: No Cardiac: Yes High Cholesterol, Hypertension Neurological: Yes (Lumbar pain with RLE radiculopathy.GIANT CELL TUMOR OF SPINE--NEW DX) Neuropathy P[employer]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 History: Hysterectomy Genitourinary: Yes Bladder Infection Gastrointestinal: Yes Chronic Constipation Musculoskeletal: Yes Degenerate Disk Disease, Fibromyalgia, Chronic Back Pain Endocrine: No HEENT: No 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 0.0oz. 68.577892px; 24.2 BMI Method:Stated General Appearance: No Apparent Distress, WD/WN HEENT: PERRL/EOMI, TMs Normal, Normal ENT Inspection, Pharynx Normal Neck: Full Range of Motion, Normal Inspection, Non Tender, Supple Respiratory: Chest Non Tender, Lungs Clear, Normal Breath Sounds, No Accessory Muscle Use, No Respiratory Distress Cardiovascular: Regular Rate, Rhythm, No Edema, No Gallop, No JVD, Bradycardia Gastrointestinal: Normal Bowel Sounds, No Organomegaly, No Pulsatile Mass, Non Tender, Soft Extremity: Normal Capillary Refill, Normal Inspection, Normal Range of Motion Neurologic/Psychiatric: Alert, Oriented x3 Skin: Normal Color, Warm/Dry Progress/Results/Core Measures Results/Orders Lab Results Laboratory Tests Test 09/09/21 22:13 Range/Units White Blood Count 6.9 4.3-11.0 10^3/uL Red Blood Count 4.76 3.80-5.11 10^6/uL Hemoglobin 13.7 11.5-16.0 g/dL Hematocrit 41 35-52 % Mean Corpuscular Volume 85 80-99 fL Mean Corpuscular Hemoglobin 29 25-34 pg Mean Corpuscular Hemoglobin Concent 34 32-36 g/dL Red Cell Distribution Width 12.5 10.0-14.5 % Platelet Count 315 130-400 10^3/uL Mean Platelet Volume 8.9 L 9.0-12.2 fL Immature Granulocyte % (Auto) 0 % Neutrophils (%) (Auto) 56 42-75 % Lymphocytes (%) (Auto) 32 12-44 % Monocytes (%) (Auto) 11 0-12 % Eosinophils (%) (Auto) 0 0-10 % Basophils (%) (Auto) 1 0-10 % Neutrophils # (Auto) 3.8 1.8-7.8 10^3/uL Lymphocytes # (Auto) 2.2 1.0-4.0 10^3/uL Monocytes # (Auto) 0.7 0.0-1.0 10^3/uL Eosinophils # (Auto) 0.0 0.0-0.3 10^3/uL Basophils # (Auto) 0.1 0.0-0.1 10^3/uL Immature Granulocyte # (Auto) 0.0 0.0-0.1 10^3/uL Prothrombin Time 12.4 12.2-14.7 SEC INR Comment 0.9 0.8-1.4 Activated Partial Thromboplast Time 36 H 24-35 SEC Sodium Level 143 135-145 MMOL/L Potassium Level 3.7 3.6-5.0 MMOL/L Chloride Level 106 98-107 MMOL/L Carbon Dioxide Level 24 21-32 MMOL/L Anion Gap 13 5-14 MMOL/L Blood Urea Nitrogen 17 7-18 MG/DL Creatinine 0.81 0.60-1.30 MG/DL Estimat Glomerular Filtration Rate 85 BUN/Creatinine Ratio 21 Glucose Level 114 H 70-105 MG/DL Calcium Level 9.8 8.5-10.1 MG/DL Corrected Calcium 9.4 8.5-10.1 MG/DL Magnesium Level 2.1 1.6-2.4 MG/DL Total Bilirubin 0.4 0.1-1.0 MG/DL Aspartate Amino Transf (AST/SGOT) 24 5-34 U/L Alanine Aminotransferase (ALT/SGPT) 22 0-55 U/L Alkaline Phosphatase 81 40-136 U/L Myoglobin 29.5 10.0-92.0 NG/ML Troponin I < 0.028 <0.028 NG/ML B-Type Natriuretic Peptide 49.8 <100.0 PG/ML Total Protein 7.4 6.4-8.2 GM/DL Albumin 4.5 3.2-4.5 GM/DL My Orders Orders - ANETTE WARREN PA Cbc With Automated Diff (09/09/21 22:24) Magnesium (09/09/21 22:24) Chest 1 View, Ap/Pa Only (09/09/21 22:24) Ekg Tracing (09/09/21 22:24) Comprehensive Metabolic Panel (09/09/21 22:24) Myoglobin Serum (09/09/21 22:24) Protime With Inr (09/09/21:24) Partial Thromboplastin Time (09/09/21:24) O2 (09/09/21:24) Monitor-Rhythm Ecg Trace Only (09/09/21:24) Ed Iv/Invasive Line Start (09/09/21 22:24) Bnp Jean-Claude (09/09/21 22:24) Troponin I Jean-Claude (09/09/21 22:24) Aspirin Chewable Tablet (Baby Aspirin Ch (09/09/21 22:30) Medications Given in ED Vital Signs/I&O 09/09/21 09/09/21 22:09 22:21 Pulse 52 Resp 16 B/P (MAP) 130/69 (89) Pulse Ox 98 O2 Delivery Room Air Room Air Blood Pressure Mean: 89 Departure Communication (Admissions) Time/Spoke to Admitting Phy: 23:20 Patient was discussed with Dr. Rao who accepts patient. Contact cardiology Dr. Andres in the morning. Currently asymptomatic bradycardia. Concerning that she is on Cardizem and metoprolol resulting in bradycardia. She states she had a syncopal episode 3 to 4 weeks ago but did not follow-up with Dr. Bonilla or her primary care physician. Dr. 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 Her initial cardiac work-up unremarkable. Patient was given aspirin. Concerning further bradycardia. Further cardiac work-up needed. She had cardiac catheterization in 2018 mild disease. Echocardiogram performed this last April ejection fraction 50 to 55%. Chest x-ray unremarkable. Consult with Dr. Solis at 2320. Recommends no intervention at this time. Recommend providing something to help her sleep. She was given Benadryl as needed. Serial troponins. Impression Primary Impression: Chest pain Additional Impression: Bradycardia Disposition: ADMITTED INPATIENT Condition: Stable Admissions Decision to Admit Reason: Admit from ER (General) Decision to Admit/Date: Sep 09, 2021 Time/Decision to Admit Time: 23:20 Departure-Patient Inst. Referrals: ELLEN JACKSON DO (PCP/Family) Primary Care Physician ANETTE WARREN Sep 09, 2021 22:29
[2021-09-09 22:30] LABS: BASOPHILS # (AUTO) 0.1 10^3/uL (0.0-0.1); BASOPHILS % (AUTO) 1 % (0-10); EOSINOPHILS % (AUTO) 0 % (0-10); HEMATOCRIT 41 % (35-52); HEMOGLOBIN 13.7 g/dL (11.5-16.0); LYMPHOCYTES # (AUTO) 2.2 10^3/uL (1.0-4.0); LYMPHOCYTES % (AUTO) 32 % (12-44); MEAN CORPUSCULAR HEMOGLOBIN 29 pg (25-34); MEAN CORPUSCULAR HGB CONC 34 g/dL (32-36); MEAN CORPUSCULAR VOLUME 85 fL (80-99); MEAN PLATELET VOLUME 8.9 fL (9.0-12.2); MONOCYTES # (AUTO) 0.7 10^3/uL (0.0-1.0); MONOCYTES % (AUTO) 11 % (0-12); NEUTROPHILS # (AUTO) 3.8 10^3/uL (1.8-7.8); NEUTROPHILS % (AUTO) 56 % (42-75); PLATELET COUNT 315 10^3/uL (130-400); WHITE BLOOD COUNT 6.9 10^3/uL (4.3-11.0)
[2021-09-09] MEDS ORDERED: ASPIRIN 81 MG CHEW (CHILDREN'S ASA) PO ONE (22:30)
[2021-09-09 22:37] LABS: INR 0.9 (0.8-1.4); PROTHROMBIN TIME PATIENT 12.4 SEC (12.2-14.7)
[2021-09-09 22:40] LABS: ALBUMIN 4.5 GM/DL (3.2-4.5); POTASSIUM 3.7 MMOL/L (3.6-5.0)
[2021-09-09 22:42] LABS: CALCIUM 9.8 MG/DL (8.5-10.1)
[2021-09-09 22:43] LABS: TOTAL PROTEIN 7.4 GM/DL (6.4-8.2)
[2021-09-09 22:45] LABS: BILIRUBIN,TOTAL 0.4 MG/DL (0.1-1.0)
[2021-09-09 22:47] LABS: CREATININE SERUM 0.81 MG/DL (0.60-1.30)
[2021-09-09 22:51] LABS: MAGNESIUM 2.1 MG/DL (1.6-2.4)
--- NOTE | 2021-09-09 23:24 | Diagnostic Imaging Report ---
Indication: Chest pain AP view of chest is obtained with comparison made study of 12/12/2012 FINDINGS: Heart size and pulmonary vascularity are within normal limits, and the lungs are clear, bilaterally. IMPRESSION: Unremarkable chest. Dictated by: Dictated on workstation # [id number]
[2021-09-09 23:56] VITALS: BP 94/51
--- NOTE | 2021-09-10 00:25 | Tele-ICU Consult ---
History of Present Illness History of Present Illness Date Seen by Provider: Sep 10, 2021 Time Seen by Provider: 00:20 History of Present Illness 56 yo F came to ED with chest pain and HR in 40's, has been on metoprolol 50 bid, recently started on Cardizem 180 Has Hx of irregular HR, trop and BNP ok, CXR ok basic lab ok Bradycardia is asymptomatic PMH, Hx of giant cell Ca spine Allergies and Home Medications Allergies Uncoded Allergies: IMITREX (Allergy, Unknown, 12/11/12) Home Medications Aspirin 81 Mg Tab.chew, 81 MG PO HS, (Reported) Cyanocobalamin 1,000 Mcg/Ml Inj, 1,000 MCG IJ MONTHLY, (Reported) Cyclobenzaprine HCl 5 Mg Tablet, 10 MG PO HS, (Reported) TAKES 2 (5MG) TABLETS Cyclobenzaprine HCl 5 Mg Tablet, 5 MG PO DAILY PRN for MUSCLE SPASMS, (Reported) TAKES DURING THE DAY PRN OR MAY TAKE WITH HER 2 BEDTIME TABLETS FOR TOTAL OF 15MG AT BEDTIME Diazepam 5 Mg Tablet, 5 MG PO Q6H Prescribed by: LB CORONA on 10/31/18 003 Fentanyl 1 Each Patch.td72, 25 MCG TD Q72H, (Reported) Gabapentin 600 Mg Tablet, 600 MG PO TID, (Reported) Lovastatin 40 Mg Tablet, 40 MG PO HS, (Reported) Metoprolol Succinate 50 Mg Tab.er.24h, 50 MG PO DAILY, (Reported) Oxycodone HCl 10 Mg Tablet, 10 MG PO BID, (Reported) Prednisone 5 Mg Tablet, 5 MG PO UD 12 PILLS DAY 1, THEN DECREASE BY 1 PILL A DAY UNTIL GONE Prescribed by: LB CORONA on 10/31/1832 Sennosides/Docusate Sodium 1 Each Tablet, 2 TAB PO DAILY PRN for CONSTIPATION- 6TH LINE, (Reported) Past Medical/Social/Family Hx Patient Social History Tobacco Use?: No Smoking Status: Never a Smoker Smokeless Tobacco Frequency: Never a User Use of E-Cig and/or Vaping dev: No Substance use?: No Alcohol Use?: No Pt stated abuse/neglect: No Immunizations Up To Date Influenza Vaccine Up-to-Date: Yes; Up-to-Date Tetanus Booster (TDap): Unknown Hepatitis A: No Hepatitis B: No TB Skin Test: None Current Status status: No status: No Advance Directives: No Communicates: Verbally Primary Language: Macedonian Preferred Spoken Language: Macedonian Sensory deficits: Vision impairment Implanted or Applied Medical D: None Review of Systems Constitutional: see HPI EENTM: see HPI Respiratory: see HPI Cardiovascular: see HPI Gastrointestinal: see HPI Genitourinary: see HPI Musculoskeletal: see HPI Skin: see HPI Psychiatric/Neurological: See HPI Focused Exam Height, Weight, BMI Height: 5'6.00" Weight: 150lbs. 0.0oz. 68.860840ll; 24.81 BMI Method:Stated Exam Exam Patient acknowledged, consented, and participated in this virtual visit which was conducted using real time audio/video Vital Signs Date Time Temp Pulse Resp B/P (MAP) Pulse Ox O2 Delivery O2 Flow Rate FiO2 09/09/21 23:56 36.8 43 16 94/51 99 Room Air 09/09/21 22:21 Room Air 09/09/21 22:09 52 16 130/69 (89) 98 Room Air Height & Weight Height: 5'6.00" Weight: 150lbs. 0.0oz. 68.417424lv; 24.81 BMI Method:Stated General Appearance: No Apparent Distress, WD/WN HEENT: PERRL/EOMI, TMs Normal, Normal ENT Inspection, Pharynx Normal Neck: Full Range of Motion, Normal Inspection, Non Tender, Supple Respiratory: Chest Non Tender, Lungs Clear, Normal Breath Sounds, No Accessory Muscle Use, No Respiratory Distress Cardiovascular: Regular Rate, Rhythm, No Edema, No Gallop, No JVD, Bradycardia (HR is regular and in 40's) Capillary Refill: Less Than 3 Seconds Gastrointestinal: normal bowel sounds, non tender Extremity: Normal Capillary Refill, Normal Inspection, Normal Range of Motion Neurologic/Psychiatric: Alert, Oriented x3 Skin: Normal Color, Warm/Dry Results Lab Laboratory Tests 09/09/21 22:13 Assessment/Plan Assessment/Plan was lightheaded before but not now, will observe, cardiology to see in am Critical Care: Critically Ill Patient Time spent with patient (mins): 25 LUPE STOKES MD Sep 10, 2021 00:25
[2021-09-10] MEDS ORDERED: morphine INJ 4 MG/ML 1 ML (VIAL/SYRINGE) IV PRN (00:45)
[2021-09-10] MEDS ORDERED: NITROGLYCERIN 0.4 MG SL TABS BTL 25'S SL PRN (00:45)
[2021-09-10] MEDS ORDERED: CATHETER FLUSH 10 ML SYR IVP PRN (00:45)
[2021-09-10] MEDS ORDERED: diphenhydrAMINE 50 MG/ML INJ (BENADRYL) IVP PRN (00:45)
[2021-09-10] MEDS ORDERED: ONDANSETRON 4 MG/2 ML (SDV) Z0FRAN IV PRN (00:45)
[2021-09-10 04:51] LABS: BASOPHILS % (AUTO) 1 % (0-10); EOSINOPHILS # (AUTO) 0.1 10^3/uL (0.0-0.3); EOSINOPHILS % (AUTO) 1 % (0-10); HEMATOCRIT 36 % (35-52); HEMOGLOBIN 12.3 g/dL (11.5-16.0); LYMPHOCYTES % (AUTO) 34 % (12-44); MEAN CORPUSCULAR HEMOGLOBIN 29 pg (25-34); MEAN CORPUSCULAR HGB CONC 34 g/dL (32-36); MEAN CORPUSCULAR VOLUME 86 fL (80-99); MEAN PLATELET VOLUME 8.7 fL (9.0-12.2); MONOCYTES # (AUTO) 0.6 10^3/uL (0.0-1.0); MONOCYTES % (AUTO) 10 % (0-12); NEUTROPHILS # (AUTO) 3.1 10^3/uL (1.8-7.8); NEUTROPHILS % (AUTO) 54 % (42-75); PLATELET COUNT 261 10^3/uL (130-400); WHITE BLOOD COUNT 5.7 10^3/uL (4.3-11.0)
[2021-09-10 05:12] LABS: CHLORIDE 108 MMOL/L (98-107); POTASSIUM 3.9 MMOL/L (3.6-5.0); SODIUM 141 MMOL/L (135-145)
[2021-09-10 05:13] LABS: CALCIUM 9.2 MG/DL (8.5-10.1)
[2021-09-10 05:14] LABS: GLUCOSE 92 MG/DL (70-105); TRIGLYCERIDES 94 MG/DL (<150); VLDL CHOLESTEROL 19 MG/DL (5-40)
[2021-09-10 05:15] LABS: CARBON DIOXIDE 21 MMOL/L (21-32)
[2021-09-10 05:17] LABS: GFR ESTIMATED 101
[2021-09-10 05:19] LABS: BUN/CREATININE RATIO 24; CHOLESTEROL 167 MG/DL (< 200)
[2021-09-10 05:20] LABS: HDL CHOLESTEROL 47 MG/DL (40-60)
[2021-09-10] MEDS ORDERED: CATHETER FLUSH 10 ML SYR IVP SCH (06:00)
[2021-09-10] MEDS ORDERED: ASPIRIN E.C. 81 MG (ECOTRIN) TAB PO SCH (09:00)
--- NOTE | 2021-09-10 13:45 | Consultation-Cardiology ---
HPI-Cardiology Cardiology Consultation: Date of Consultation 09/10/21 Time Seen by a Provider: 12:10 Date of Admission Attending Physician Catie Rao MD Admitting Physician Francisco Jackson DO Consulting Physician LOREE UAGLDE MD, MA, FACP, FACC, FSCAI, CCDS HPI: Chief Complaint: Slow heart beat 56 yo woman who woke up from an alarm from her watch yesterday. The alarm was that her heart rate was consistently lower than 40 bpm while she was sleeping. She says she has difficulty falling asleep and may also have sleep apnea. She does not report cp or syncope or shortness of breath. She has a chronic h/o int ermittent palp consisting of a feeling of flip flop in the chest that may last from minutes to hours. She has been diagnosed with PVCs and intermittent bigeminy and trigeminy. Cardiac w/u has been negative. She is chronically on bb and, lately, Cardizem CD was also added to her regimen by her pcp Review of Systems-Cardiology Review of Systems Constitutional: malaise, tiredness; No weight loss, No weight gain Eyes: No vision change Ears/Nose/Throat: No ear discharge, No nasal drainage, No recent hearing loss Respiratory: As described under HPI Cardiovascular: As described under HPI Gastrointestinal: No diarrhea, No nausea, No vomiting Genitourinary: No dysuria, No hematuria, No urine frequency changes Musculoskeletal: back pain (chronic) Skin: No rash, No ulcerations Psychiatric/Neurological: No seizure, No focal weakness, No syncope Hematologic: No bleeding abnormalities All Other Systems Reviewed Negative Unless Noted: Yes ZFH-Oacpgo-Makxzn Hx Patient Social History Smoking Status: Never a Smoker 2nd Hand Smoke Exposure: No Have you traveled recently?: No Alcohol Use?: No Pt feels they are or have been: No Immunizations Up To Date Tetanus Booster (TDap): Unknown Date of Influenza Vaccine: Apr 12, 2021 Past Medical History PMH As described under Assessment. Family Medical History Family Medical History: She does not report fam h/o early CAD or SCD Allergies and Home Medications Allergies Uncoded Allergies: IMITREX (Allergy, Unknown, 12/11/12) Patient Home Medication List Home Medication List Reviewed: Yes Aspirin (Aspirin) 81 Mg Tab.chew, 81 MG PO HS, (Reported) Entered as Reported by: CHHAYA TUCKER on 10/10/17903 Cyanocobalamin (Cyanocobalamin Injection) 1,000 Mcg/Ml Inj, 1,000 MCG IJ MONTHLY, (Reported) Entered as Reported by: CHHAYA TUCKER on 10/10/17905 Cyclobenzaprine HCl (Cyclobenzaprine HCl) 5 Mg Tablet, 10 MG PO HS, (Reported) Entered as Reported by: CHHAYA TUCKER on 10/10/17903 Cyclobenzaprine HCl (Cyclobenzaprine HCl) 5 Mg Tablet, 5 MG PO DAILY PRN for MUSCLE SPASMS, (Reported) Entered as Reported by: CHHAYA TUCKER on 10/10/17903 Diazepam (Valium) 5 Mg Tablet, 5 MG PO Q6H Prescribed by: LB CORONA on 10/31/18 003 Fentanyl (Fentanyl Patch 25 MCG) 1 Each Patch.td72, 25 MCG TD Q72H, (Reported) Entered as Reported by: CHHAYA TUCKER on 10/10/17903 Gabapentin (Gabapentin) 600 Mg Tablet, 600 MG PO TID, (Reported) Entered as Reported by: CHHAYA TUCKER on 10/10/17903 Lovastatin (Lovastatin) 40 Mg Tablet, 40 MG PO HS, (Reported) Entered as Reported by: CHHAYA TUCKER on 10/10/17903 Metoprolol Succinate (Metoprolol Succinate) 50 Mg Tab.er.24h, 50 MG PO DAILY, (Reported) Entered as Reported by: CHHAYA TUCKER on 10/10/17903 Oxycodone HCl (Oxycodone HCl) 10 Mg Tablet, 10 MG PO BID, (Reported) Entered as Reported by: CHHAYA TUCKER on 10/10/17903 Prednisone (Prednisone) 5 Mg Tablet, 5 MG PO UD Prescribed by: LB CORONA on 10/31/18 003 Sennosides/Docusate Sodium (Senokot-S Tablet) 1 Each Tablet, 2 TAB PO DAILY PRN for CONSTIPATION-6TH LINE, (Reported) Entered as Reported by: CHHAYA TUCKER on 10/10/17906 Physical Exam-Cardiology Physical Exam Vital Signs/I&O 09/10/21 09/10/21 09/10/21 09/10/21 01:45 03:00 04:00 04:30 Temp 36.5 Pulse 51 53 51 Resp 11 15 13 B/P (MAP) 90/60 112/60 105/61 Pulse Ox 98 97 98 O2 Delivery Room Air Room Air Room Air Room Air 09/10/21 09/10/21 09/10/21 09/10/21 05:00 06:00 07:00 07:00 Pulse 49 48 46 48 Resp 12 12 B/P (MAP) 96/55 100/58 105/62 Pulse Ox 98 97 99 O2 Delivery Room Air Room Air Room Air 09/10/21 09/10/21 09/10/21 09/10/21 07:27 08:00 08:18 09:00 Temp 36.4 Pulse 48 77 49 Resp 10 10 B/P (MAP) 103/63 110/68 Pulse Ox 98 97 O2 Delivery Room Air Room Air 09/10/21 09/10/21 09/10/21 09/10/21 09:00 10:00 11:00 11:53 Temp 36.3 Pulse 49 44 Resp 6 9 B/P (MAP) 76/62 101/56 Pulse Ox 98 96 97 O2 Delivery Room Air Room Air Room Air 09/10/21 09/10/21 09/10/21 09/10/21 12:00 13:00 13:00 13:20 Pulse 47 45 60 Resp 10 B/P (MAP) 98/50 91/56 Pulse Ox 94 98 O2 Delivery Room Air Room Air Capillary Refill : Less Than 3 Seconds Constitutional: AAO x 3, well-developed, well-nourished HEENT: EOMI, hearing is well preserved; No xanthelasmas are seen Neck: carotid pulses are 2 + bilaterally, with good upstrokes Respiratory: No accessory muscle use; other (good bilateral air entry) Cardiovascular: regular rate-rhythm, S1 and S2, systolic murmur (soft ARACELIS at card base) Gastrointestinal: No tender; soft; No guarding, No rebound; audible bowel sound s Extremities: No swelling, No clubbing, No cyanosis Neurologic/Psychiatric: oriented x 3, other (moves all limbs equally) Skin: No rash, No ulcerations Data Review Labs Laboratory Tests 09/09/21 22:13: White Blood Count 6.9, Red Blood Count 4.76, Hemoglobin 13.7, Hematocrit 41, Mean Corpuscular Volume 85, Mean Corpuscular Hemoglobin 29, Mean Corpuscular Hemoglobin Concent 34, Red Cell Distribution Width 12.5, Platelet Count 315, Mean Platelet Volume 8.9L, Immature Granulocyte % (Auto) 0, Neutrophils (%) (Auto) 56, Lymphocytes (%) (Auto) 32, Monocytes (%) (Auto) 11, Eosinophils (%) (Auto) 0, Basophils (%) (Auto) 1, Neutrophils # (Auto) 3.8, Lymphocytes # (Auto) 2.2, Monocytes # (Auto) 0.7, Eosinophils # (Auto) 0.0, Basophils # (Auto) 0.1, Immature Granulocyte # (Auto) 0.0, Prothrombin Time 12.4, INR Comment 0.9, Activated Partial Thromboplast Time 36H, Sodium Level 143, Potassium Level 3.7, Chloride Level 106, Carbon Dioxide Level 24, Anion Gap 13, Blood Urea Nitrogen 17, Creatinine 0.81, Estimat Glomerular Filtration Rate 85, BUN/Creatinine Ratio 21, Glucose Level 114H, Calcium Level 9.8, Corrected Calcium 9.4, Magnesium Level 2.1, Total Bilirubin 0.4, Aspartate Amino Transf (AST/SGOT) 24, Alanine Aminotransferase (ALT/SGPT) 22, Alkaline Phosphatase 81, Myoglobin 29.5, Troponin I < 0.028, B-Type Natriuretic Peptide 49.8, Total Protein 7.4, Albumin 4.5 09/10/21 04:40: White Blood Count 5.7, Red Blood Count 4.20, Hemoglobin 12.3, Hematocrit 36, Mean Corpuscular Volume 86, Mean Corpuscular Hemoglobin 29, Mean Corpuscular Hemoglobin Concent 34, Red Cell Distribution Width 12.6, Platelet Count 261, Mean Platelet Volume 8.7L, Immature Granulocyte % (Auto) 0, Neutrophils (%) (Auto) 54, Lymphocytes (%) (Auto) 34, Monocytes (%) (Auto) 10, Eosinophils (%) (Auto) 1, Basophils (%) (Auto) 1, Neutrophils # (Auto) 3.1, Lymphocytes # (Auto) 2.0, Monocytes # (Auto) 0.6, Eosinophils # (Auto) 0.1, Basophils # (Auto) 0.0, Immature Granulocyte # (Auto) 0.0, Sodium Level 141, Potassium Level 3.9, Chloride Level 108H, Carbon Dioxide Level 21, Anion Gap 12, Blood Urea Nitrogen 17, Creatinine 0.70, Estimat Glomerular Filtration Rate 101, BUN/Creatinine Ratio 24, Glucose Level 92, Calcium Level 9.2, Troponin I < 0.028, Triglycerides Level 94, Cholesterol Level 167, LDL Cholesterol Direct 111, VLDL Cholesterol 19, HDL Cholesterol 47 09/10/21 12:19: Troponin I < 0.028 Laboratory Tests 09/09/21 22:13 09/10/21 04:40 A/P-Cardiology Assessment/Admission Diagnosis 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 Felisa eaton an abnormal stress test and normal coronaries were reported H/o hyperlipidemia, treated with lovastatin History of spinal tumor and back surgery and neuropathy - treated with gabapentin and fentanyl and cyclobenzaprine and oxycodone, managed by primary care physician Discussion and Recomendations * She has ch sinus vikki that is likely being exacerbated by bb and ccb. Worsening of bradycardia may also be promoting more vent ectopy (frequent PVCs). Also bp is low normal. Accordingly, we recommend stopping bb and ccb for now and following up with her primary customer care voice consultant CLAUDIA as an outpatient * Sleep studies advised. She states she will consider * Advised to return to ER for any recurrence of symptoms or new symptoms Clinical Quality Measures AMI/AHF: ASA po Prior to arrival: Yes LOREE UGALDE MD [facility] Sep 10, 2021 13:45
[2021-09-10] MEDS ORDERED: DILT180C84 PO (14:06)
--- NOTE | 2021-09-10 14:06 | History & Physical ---
History of Present Illness History of Present Illness Reason for visit/HPI Patient presented to ER yesterday because of bradycardia with HR in low 40s, as well as some chest pain that radiated to the left shoulder. 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 She states that she is feeling a bit better this morning but still tired and her shoulder still hurts. She denies any light headedness or SOA. Date of Admission Sep 09, 2021 at 23:11 Date Seen by a Provider: Sep 10, 2021 Time Seen by a Provider: 08:30 I consulted on this patient on 09/10/21 14:01 Attending Physician Catie Rao MD Admitting Physician Francisco Jackson DO Consult Allergies and Home Medications Allergies Uncoded Allergies: IMITREX (Allergy, Unknown, 12/11/12) Patient Home Medication List Aspirin (Aspirin) 81 Mg Tab.chew, 81 MG PO HS, (Reported) Entered as Reported by: CHHAYA TUCKER on 10/10/17903 Cyanocobalamin (Cyanocobalamin Injection) 1,000 Mcg/Ml Inj, 1,000 MCG IJ JACKI HLY, (Reported) Entered as Reported by: CHHAYA TUCKER on 10/10/17 09 Cyclobenzaprine HCl (Cyclobenzaprine HCl) 5 Mg Tablet, 10 MG PO HS, (Reported) Entered as Reported by: CHHAYA TUCKER on 10/10/17903 Cyclobenzaprine HCl (Cyclobenzaprine HCl) 5 Mg Tablet, 5 MG PO DAILY PRN for MUSCLE SPASMS, (Reported) Entered as Reported by: CHHAYA TUCKER on 10/10/17903 Diazepam (Valium) 5 Mg Tablet, 5 MG PO Q6H Prescribed by: LB CORONA on 10/31/18 0033 Fentanyl (Fentanyl Patch 25 MCG) 1 Each Patch.td72, 25 MCG TD Q72H, (Reported) Entered as Reported by: CHHAYA TUCKER on 10/10/17903 Gabapentin (Gabapentin) 600 Mg Tablet, 600 MG PO TID, (Reported) Entered as Reported by: CHHAYA TUCKER on 10/10/17 09 Lovastatin (Lovastatin) 40 Mg Tablet, 40 MG PO HS, (Reported) Entered as Reported by: CHHAYA TUCKER on 10/10/17903 Metoprolol Succinate (Metoprolol Succinate) 50 Mg Tab.er.24h, 50 MG PO DAILY, (Reported) Entered as Reported by: CHHAYA TUCKER on 10/10/17903 Oxycodone HCl (Oxycodone HCl) 10 Mg Tablet, 10 MG PO BID, (Reported) Entered as Reported by: CHHAYA TUCKER on 10/10/17903 Prednisone (Prednisone) 5 Mg Tablet, 5 MG PO UD Prescribed by: LB CORONA on 10/31/18 0033 Sennosides/Docusate Sodium (Senokot-S Tablet) 1 Each Tablet, 2 TAB PO DAILY PRN for CONSTIPATION-6TH LINE, (Reported) Entered as Reported by: CHHAYA TUCKER on 10/10/17906 Past Sttdokv-Fmvmqc-Nnewly Hx Patient Social History Tobacco Use?: No Smoking Status: Never a Smoker Smokeless Tobacco Frequency: Never a User Use of E-Cig and/or Vaping dev: No Substance use?: No Alcohol Use?: No Pt feels they are or have been: No Immunizations Up To Date Date of Influenza Vaccine: Apr 12, 2021 Tetanus Booster (TDap): Unknown Hepatitis A: No Hepatitis B: No Seasonal Allergies Seasonal Allergies: No Current Status status: No status: No Advance Directives: No Communicates: Verbally Primary Language: Citizen Of [place] Preferred Spoken Language: Citizen Of [place] Sensory deficits: Vision impairment Implanted or Applied Medical D: None Past Medical History Surgeries: Hysterectomy, Orthopedic High Cholesterol, Hypertension Neuropathy [employer] History: Hysterectomy Bladder Infection Chronic Constipation Degenerate Disk Disease, Fibromyalgia, Chronic Back Pain Blood Disorders: Yes (ANEMIA POST SURGERY--S/P MULTIPLE TRANSFUSIONS) Adverse Reaction/Blood Tranf: No Review of Systems Constitutional: No chills, No diaphoresis EENTM: No blurred vision Respiratory: No dyspnea on exertion, No short of breath Cardiovascular: other (h/o trigemeny PVC) Musculoskeletal: other (L shoulder pain) Physical Exam Vital Signs Vital Signs - First Documented 09/09/21 09/09/21 22:09 23:56 Temp 36.8 Pulse 52 Resp 16 B/P (MAP) 130/69 (89) Pulse Ox 98 O2 Delivery Room Air Capillary Refill : Less Than 3 Seconds Height, Weight, BMI Height: 5'6.00" Weight: 150lbs. 0.0oz. 68.083031ln; 24.81 BMI Method:Stated General Appearance: No Apparent Distress, WD/WN HEENT: PERRL/EOMI Neck: Full Range of Motion, Normal Inspection, Non Tender, Supple Respiratory: Lungs Clear, Normal Breath Sounds, No Accessory Muscle Use, No Respiratory Distress Cardiovascular: No Murmur, Normal Peripheral Pulses, Bradycardia Gastrointestinal: Normal Bowel Sounds, Non Tender, Soft Extremity: Normal Inspection, No Pedal Edema Neurologic/Psychiatric: Alert, Oriented x3, No Motor/Sensory Deficits Assessment/Plan Assessment and Plan Symptomatic Bradycardia Chest pain Trigemeny - Holding home meds metoprolol and cardizem - PO Nitro, morphine, aspirin - HR running mid 40s - Troponin, BNP, Lipids all WNL - Normal CXR - Cardiology consulted 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
--- NOTE | 2021-09-10 16:31 | Discharge Summary ---
Discharge Summary Hospital Course Problems/Dx: (1) Bradycardia Status: Acute (2) Chest pain Status: Acute Hospital Course Date of Admission: Sep 09, 2021 at 23:11 Admission Diagnosis : Symptomatic bradycardia Family Physician/Provider: Francisco Jackson DO Date of Discharge: 09/10/21 Discharge Diagnosis: Symptomatic bradycardia Hospital Course: Karine Vargas is a 56 year old female who was admitted with symptomatic bradycardia. She is on metoprolol and diltiazem. She was notified by her watch that her heart rate was in the 30s. She was having left shoulder pain with radiation down her left arm. She reports that she had a syncopal episode a month ago but did not get evaluated at that time. Her meds were held and her heart rate improved. Her troponins remained negative. Cardiology was consulted and assisted with her care. They recommended holding her medications and having her follow up with her document review specialist, Dr. Bonilla, tomorrow. She was discharged home in stable condition. Labs and Pending Lab Test: Laboratory Tests 09/09/21 22:13: White Blood Count 6.9, Red Blood Count 4.76, Hemoglobin 13.7, Hematocrit 41, Mean Corpuscular Volume 85, Mean Corpuscular Hemoglobin 29, Mean Corpuscular Hemoglobin Concent 34, Red Cell Distribution Width 12.5, Platelet Count 315, Mean Platelet Volume 8.9L, Immature Granulocyte % (Auto) 0, Neutrophils (%) (Auto) 56, Lymphocytes (%) (Auto) 32, Monocytes (%) (Auto) 11, Eosinophils (%) (Auto) 0, Basophils (%) (Auto) 1, Neutrophils # (Auto) 3.8, Lymphocytes # (Auto) 2.2, Monocytes # (Auto) 0.7, Eosinophils # (Auto) 0.0, Basophils # (Auto) 0.1, Immature Granulocyte # (Auto) 0.0, Prothrombin Time 12.4, INR Comment 0.9, Activated Partial Thromboplast Time 36H, Sodium Level 143, Potassium Level 3.7, Chloride Level 106, Carbon Dioxide Level 24, Anion Gap 13, Blood Urea Nitrogen 17, Creatinine 0.81, Estimat Glomerular Filtration Rate 85, BUN/Creatinine Ratio 21, Glucose Level 114H, Calcium Level 9.8, Corrected Calcium 9.4, Magnesium Level 2.1, Total Bilirubin 0.4, Aspartate Amino Transf (AST/SGOT) 24, Alanine Aminotransferase (ALT/SGPT) 22, Alkaline Phosphatase 81, Myoglobin 29.5, Troponin I < 0.028, B-Type Natriuretic Peptide 49.8, Total Protein 7.4, Albumin 4.5 09/10/21 04:40: White Blood Count 5.7, Red Blood Count 4.20, Hemoglobin 12.3, Hematocrit 36, Mean Corpuscular Volume 86, Mean Corpuscular Hemoglobin 29, Mean Corpuscular Hemoglobin Concent 34, Red Cell Distribution Width 12.6, Platelet Count 261, Mean Platelet Volume 8.7L, Immature Granulocyte % (Auto) 0, Neutrophils (%) (Auto) 54, Lymphocytes (%) (Auto) 34, Monocytes (%) (Auto) 10, Eosinophils (%) (Auto) 1, Basophils (%) (Auto) 1, Neutrophils # (Auto) 3.1, Lymphocytes # (Auto) 2.0, Monocytes # (Auto) 0.6, Eosinophils # (Auto) 0.1, Basophils # (Auto) 0.0, Immature Granulocyte # (Auto) 0.0, Sodium Level 141, Potassium Level 3.9, Chloride Level 108H, Carbon Dioxide Level 21, Anion Gap 12, Blood Urea Nitrogen 17, Creatinine 0.70, Estimat Glomerular Filtration Rate 101, BUN/Creatinine Ratio 24, Glucose Level 92, Calcium Level 9.2, Troponin I < 0.028, Triglycerides Level 94, Cholesterol Level 167, LDL Cholesterol Direct 111, VLDL Cholesterol 19, HDL Cholesterol 47 09/10/21 12:19: Troponin I < 0.028 Home Meds Active Valium (Diazepam) 5 Mg Tablet 5 Mg PO Q6H Reported Senokot-S Tablet (Sennosides/Docusate Sodium) 1 Each Tablet 2 Tab PO DAILY PRN Cyanocobalamin Injection (Cyanocobalamin) 1,000 Mcg/Ml Inj 1,000 Mcg IJ MONTHLY Gabapentin 600 Mg Tablet 600 Mg PO TID Cyclobenzaprine HCl 5 Mg Tablet 5 Mg PO DAILY PRN TAKES DURING THE DAY PRN OR MAY TAKE WITH HER 2 BEDTIME TABLETS FOR TOTAL OF 15MG AT BEDTIME Oxycodone HCl 10 Mg Tablet 10 Mg PO BID Fentanyl Patch 25 MCG (Fentanyl) 1 Each Patch.td72 25 Mcg TD Q72H Lovastatin 40 Mg Tablet 40 Mg PO HS Aspirin 81 Mg Tab.chew 81 Mg PO HS Cyclobenzaprine HCl 5 Mg Tablet 10 Mg PO HS TAKES 2 (5MG) TABLETS Assessment/Pt Instructions See instructions Discharge Planning: <30 minutes discharge planning Discharge Instructions Discharge Diet: Low Sodium Diet Activity as Tolerated: Yes Consultations Cardiology Discharge Physical Examination Vital Signs Vital Signs Date Time Temp Pulse Resp B/P (MAP) Pulse Ox O2 Delivery O2 Flow Rate FiO2 09/10/21 14:00 49 8 98 Room Air 09/10/21 11:53 36.3 General Appearance: No Apparent Distress, WD/WN, Anxious Respiratory: Lungs Clear, No Respiratory Distress Cardiovascular: No Murmur, Irregularly Irregular Extremity: Normal Inspection, No Pedal Edema Skin: Normal Color, Warm/Dry Neurologic/Psychiatric: Alert, No Motor/Sensory Deficits Allergies: Uncoded Allergies: IMITREX (Allergy, Unknown, 12/11/12) Discharge Summary Date of Admission Sep 09, 2021 at 23:11 Date of Discharge Discharge Date: Sep 10, 2021 Discharge Time: 12:00 Admission Diagnosis Symptomatic bradycardia Consults/Procedures Consulations Cardiology Discharge Diagnosis (1) Bradycardia Status: Acute (2) Chest pain Status: Acute Clinical Quality Measures AMI/AHF: ASA po Prior to arrival: Yes ROCK LANTIGUA MD Sep 10, 2021 16:31
== END 2021-09-10 14:30 | disposition home or self-care (01) ==
LOC: EDUNIT# 21:55 → ER 21:58 → ICU 23:11
PROVIDERS: ADMIT Internal Medicine; ATTEND Internal Medicine
DX: I49.3 Ventricular premature depolarization (principal); R07.9 Chest pain, unspecified; R00.8 Other abnormalities of heart beat; G62.9 Polyneuropathy, unspecified; E78.5 Hyperlipidemia, unspecified; Z85.830 Personal history of malignant neoplasm of bone; Z79.899 Other long term (current) drug therapy
CPT/HCPCS: 36415; 71045; 80048; 80053; 80061; 83735; 83874; 83880; 84484; 85025; 85610; 85730; 93005; 93041

== ENCOUNTER → 2021-09-13 | Outpatient (CLI) | payer OTHER ==
[~2021-09-13] MED LIST changes: +DILT180C84 PO
[2021-09-13 10:41] VITALS: BP 116/69
== END ==
LOC: CARD 10:30
PROVIDERS: ATTEND Internal Medicine Cardiovascular Disease
DX: I10 Essential (primary) hypertension (principal)
CPT/HCPCS: 93351

== ENCOUNTER → 2023-05-22 | Outpatient (CLI) | payer BC ==
--- NOTE | 2023-05-23 09:34 | Diagnostic Imaging Report ---
Indication: Routine screening. Comparison is made with prior mammogram 11/23/2019. 2-D and 3-D bilateral screening mammography was performed with CAD. The current study was also evaluated with a Computer Aided Detection (CAD) system. Both breasts are heterogeneously dense, limiting the sensitivity of mammography. No mass or malignant-appearing microcalcifications are seen. Axillae are unremarkable. IMPRESSION: BI-RADS Category 1 No mammographic features suspicious for malignancy are identified. ACR BI-RADS Category 1: Negative. Result letter will be mailed to the patient. Note: At least 10% of breast cancer is not imaged by mammography. Dictated by: Dictated on workstation # [id number]
== END ==
LOC: RAD 15:02
PROVIDERS: ATTEND Internal Medicine
DX: Z12.31 Encounter for screening mammogram for malignant neoplasm of breast (principal)
CPT/HCPCS: 77063; 77067